=== PATIENT | male | born 1950 | race Caucasian/White ===

== ENCOUNTER 2024-10-12 19:43 | Inpatient (IN) | payer MEDICARE, SELFPAY ==
[2024-10-12] VITALS (37 sets, daily range): BP systolic 59–116; BP diastolic 34–83; PULSE 90; BMI 33.7
--- NOTE | 2024-10-12 16:05 | ED.GENMED ---
History of Present Illness
General
Chief Complaint: Heart Rate Problem
Source: patient, records and ambulance crew
Exam Limitations: dementia (Vascular dementia)
Time Seen by Provider: 10/12/24 15:56
Nursing documentation reviewed up to this point in time: agreed with
History of Present Illness
History of Present Illness:
74-year-old male with a past medical history of vascular dementia, COPD with chronic respiratory failure on 3 L of home oxygen, atrial fibrillation on Eliquis who presents to the emergency department from group home for evaluation of bradycardia.
Patient is somewhat limited as a historian but he is awake and alert and answers basic questions�he cannot tell me exactly why he is here. He says that he feels generally well denies any pain, shortness of breath or any other specific complaints.
According to EMS report group home staff today noted that he was severely bradycardic and he was referred to the ER. Per EMS he appeared to be in atrial fibrillation with heart rate in the 30s; he was given atropine x 1 mg with some improvement
in heart rate. Patient says that he follows with Dr. Maier for cardiology. He is on Eliquis and metoprolol according to medication list provided from group home.
Review of Systems
Review of Systems
All Other Systems: ROS reviewed and negative except as documented in HPI and ROS
Respiratory: Denies trouble breathing
Cardiac: Denies chest pain
ABD/GI: Denies abdominal pain
Neurological: Denies dizzy or headache
Phy Exam
Physical Exam
Physical Exam:
General: Awake, alert, oriented x2; no acute distress
Head: Normocephalic, atraumatic
Eyes: Conjunctiva normal
Throat: Airway intact, handling secretions
Neck: Trachea midline, supple without meningismus
Lungs: Clear to auscultation bilaterally, no wheezing, rales, rhonchi
Heart: Bradycardia with irregular rhythm; no rubs gallops or murmurs appreciated
Abd: Soft, non distended, nontender
Neuro: No gross deficits
Skin: Chronic venous stasis changes in the legs bilaterally with minor superficial wounds but no signs of acute infection
Extremities: Bilateral lower extremity edema; distal extremities are warm
Scores
Heart Failure Risk
Heart Failure Risk Score: Not Applicable
Heart Score for Chest Pain Patients
STEMI patient?: Not applicable
Withdrawal Assessment of Alcohol
Withdrawal Assessment Completed?: Not applicable
Course
Orders/Labs/Results
Orders:
Orders
10/12/24 16:00
EKG [Electrocardiogram (*1)] Urgent
Reason for Study: Bradycardia / Tachycardia
EKG- Treatment ONCE
10/12/24 16:17
CARDIOLOGY CONSULT Urgent
Consulting Provider: Lavelle Meyer
Was physician already notified: Yes
10/12/24 16:20
Complete Blood Count/With Diff Urgent
Comprehensive Metabolic Panel Urgent
Free T4 Urgent
Magnesium Urgent
PTT Urgent
Prothrombin Time Urgent
TSH Reflex To Free T4 Urgent
10/12/24 16:53
Electrocardiogram (*1) Urgent
Reason for Study: Bradycardia / Tachycardia
EKG- Treatment ONCE
10/12/24 17:07
EKG [Electrocardiogram (*1)] Stat
Reason for Study: Bradycardia / Tachycardia
10/12/24 17:09
DOPamine 400 MG/D5W 250 ML [DOPamine 400 MG] 400 mg in 250 ml .ROUTE .STK-MED
10/12/24 17:11
EKG [Electrocardiogram (*1)] Urgent
Reason for Study: Bradycardia / Tachycardia
10/12/24 17:12
EKG- Treatment ONCE
10/12/24 17:14
Atropine Sulfate [Atropine 0.1 mg/ml Syringe] 1 mg .ROUTE .STK-MED ONE
10/12/24 17:18
Atropine Sulfate [Atropine 0.1 mg/ml Syringe] 1 mg IV NOW STA
10/12/24 17:22
Lactate Level [Lactic Acid] Urgent
Troponin I Urgent
Urinalysis Reflex To Culture Urgent
EPINEPHrine 4 mg/250 mL NSS [Adrenalin] 4 mg in 250 ml IV NOW
Initial dose in mcg/min, then titrate:: 2
Titrate to keep:: MAP > 65 mmHg
Titrate by mcg/min:: 0.5 - 1 mcg/minute
Frequency of titrations (minutes):: 5
Maximum dose in mcg/min:: 10
Begin to taper infusion when:: Remained at goal for 4hrs
Taper by mcg/min:: 0.5 - 1 mcg/minute
Frequency of taper (minutes) if patient maintains goal:: 30
Taper to off?: Yes
If infusion off & no longer maintaining goal:: Contact Provider
10/12/24 17:23
CR Chest Portable - 1 View Urgent
Comment:
Reason For Exam: hypotension
Reason Study Needs to be Portable: Unable to Transport
10/12/24 17:30
Blood Culture Q30M
SATISH Source: Blood/Venous
Specimen Description:
10/12/24 17:32
0.9% Sodium Chloride 1000 ml [Nss] 1,000 ml IV BOLUS
DOPamine 400 MG/D5W 250 ML [DOPamine 400 MG] 400 mg in 250 ml IV NOW
Initial dose in mcg/kg/min, then titrate:: 5
Titrate to keep:: MAP > 65 mmHg
Titrate by mcg/kg/min:: 1-2 mcg/kg/min
Frequency of titrations (minutes):: 15
Maximum dose in ICU in mcg/kg/min:: 20
Maximum dose in IMU in mcg/kg/min:: 10
Begin to taper infusion when:: Remained at goal for 4hrs
Taper by mcg/kg/min:: 1-2 mcg/kg/min
Frequency of taper (minutes) if patient maintains goal:: 30
Taper to off?: Yes
If infusion off & no longer maintaining goal:: Contact Provider
10/12/24 17:33
0.9% Sodium Chloride 1000 ml [Nss] 1,000 ml IV BOLUS
Piperacillin/Tazo 3.375 Gram [Zosyn] 3.375 gram in 50 ml IV NOW
10/12/24 18:00
Blood Culture Q30M
SATISH Source: Blood/Venous
Specimen Description:
Abnormal Lab Results
10/12/24
16:20
WBC 11.0 H 10^3/uL
(4.8-10.8)
RBC 3.77 L 10^6/uL
(4.70-6.10)
Hgb 12.4 L g/dL
(13.0-18.0)
Hct 38.2 L %
(39.0-52.0)
MCV 101.3 H fL
(80.0-94.0)
MCH 32.9 H pg
(27.0-31.0)
MCHC 32.5 L g/dL
(33.0-37.0)
RDW 17.1 H %
(11.5-14.5)
Abs Immat Gran (auto) 0.1 H 10^3/uL
(0-0.05)
Absolute Neuts (auto) 8.3 H 10^3/uL
(1.4-6.5)
Absolute Monos (auto) 1.3 H 10^3/uL
(0.1-0.6)
Immature Gran % 0.7 H %
(0-0.5)
Neutrophils % 75.6 H %
(42.2-75.2)
Lymphocytes % 10.7 L %
(20.5-51.1)
Monocytes % 12.0 H %
(1.7-9.3)
PT 26.7 H Sec
(11.4-14.6)
APTT 43.5 H Sec
(23.4-35.0)
Chloride 95 L mmol/L
(98-107)
BUN 56 H mg/dl
(9-20)
Creatinine 2.7 H mg/dL
(0.7-1.3)
Glucose 100 H mg/dl
(70-99)
Total Bilirubin 1.5 H mg/dl
(0.2-1.3)
TSH (Reflex) 6.63 H uIU/ml
(0.47-4.68)
10/12/24 16:20
10/12/24 16:20
Vital Signs
Initial and Last Documented VS:
Initial Vital Signs
Temp Pulse Resp BP Pulse Ox
36.3 C 47 16 114/83 94
10/12/24 16:01 10/12/24 16:01 10/12/24 16:01 10/12/24 16:01 10/12/24 16:01
Last Documented Vital Signs
Temp Pulse Resp BP Pulse Ox
36.3 C 43 14 114/83 98
10/12/24 16:01 10/12/24 16:45 10/12/24 16:45 10/12/24 16:01 10/12/24 16:45
MDM/Problems Addressed
Differential Diagnosis Includes:
Bradycardia: Beta-dianne, bradycardia dysrhythmia, hypothyroidism, electrolyte derangement
MDM/Problems Addressed:
74-year-old male presents to the emergency room for evaluation of bradycardia noted at group home; patient says he is asymptomatic although he is somewhat unreliable as a historian due to his history of dementia. He sees Dr. Maier for cardiology
has a known history of A-fib and is on metoprolol and Eliquis. He apparently had a heart rate in the 30s for EMS received atropine x 1 mg. Heart rate high 40s to 50s here appears to have underlying atrial fibrillation on EKG but with regular
narrow complex likely junctional beats rate of 50. Will monitor on telemetry, place IV send labs including a CBC and a CMP, thyroid studies. Reassess after the above. Discussed with cardiology with concern for possible heart block.
Initial labs reviewed: CBC shows slight leukocytosis to 11, marginal anemia 12.4. CMP shows creatinine of 2.7 no baseline available for comparison. IV fluids in progress. His TSH is high free T4 is pending. Continue to monitor.
Patient becoming increasingly bradycardic heart rate was initially 50 now down into the 30s and he is becoming increasingly hypotensive blood pressure 70s over 40s. Repeat EKG again shows underlying A-fib with junctional escape rhythm versus slow
A-fib. Discussed with cardiology to review. Will give another dose of atropine as he seem to respond to this before. If no response will start on epinephrine infusion. He is already receiving IV fluids. I did add basic infectious workup given
his hypotension and slight leukocytosis--blood cultures, urinalysis, chest x-ray.
Discussed with cardiology�they will consult on patient, recommended dopamine for now instead of epinephrine, agreed with repeat dose of atropine. Continue with fluids. Workup for alternate cause for his hypotension. No plans for emergent
temporary wire for now but will reassess after treatment as above. I will cover patient with at least a dose of broad-spectrum antibiotics given his hypotension although at this point no clear focal infectious source noted and somewhat lower
suspicion that he is septic.
Chronic conditions affecting care:
Atrial fibrillation
*Pulse Oximetry
Patient hypoxic: no (Patient is on chronic oxygen but no increased oxygen requirement today)
*EKG
Interpreted by ED Provider?: Yes
Heart Rate: 50
Rate: bradycardiac
Rhythm: a-fib
Interval: normal interval
QRS Pattern: low voltage
Ischemia: no ischemia
*Critical Care Note
Total Time (30-74mins, 75-104mins- exclusive of procedures): Not Applicable
Data Reviewed
Source: patient, records and ambulance crew
Patient Management
Discussion with other providers: Hospitalist (Discussed with hospitalist) and Biomechanical Engineer (Discussed with cardiology)
Escalation/DeEscalation of care consider admission/obs:
Admission indicated
ED Attending Note
-
Portions of this chart may have been created with voice recognition software.� Occasional wrong word or��sound alike� substitutions may have occurred due to the inherent limitations of voice recognition software.
Discharge Plan
Departure
Discharge Problem:
Bradycardia
Prescriptions:
No Action
furosemide 40 mg Tablet
40 mg PO BID
acetaminophen 325 mg Tablet
650 mg PO Q6HPRN PRN (Reason: mild pain/temp>100.4)
ipratropium-albuterol 0.5 mg-3 mg(2.5 mg base)/3 mL Solution For Nebulization
3 ml INHALATION R Q4HPRN PRN (Reason: dyspnea/wheezing)
ondansetron HCl [Zofran] 4 mg Tablet
4 mg PO Q8HPRN PRN (Reason: nausea/vomiting)
loperamide [Imodium A-D] 2 mg Tablet
2 mg PO Q8HPRN PRN (Reason: diarrhea)
thiamine HCl (vitamin B1) 100 mg Tablet
100 mg PO DAILY
magnesium hydroxide [Milk of Magnesia] 400 mg/5 mL Suspension
30 ml PO [id number] PRN (Reason: no bm x3 days)
bisacodyl 10 mg Suppository
10 mg SD DAILYPRN PRN (Reason: if mom ineffective)
metoprolol tartrate 50 mg Tablet
50 mg PO DAILY
Fleet Enema 19-7 gram/118 mL Enema
118 ml SD DAILYPRN PRN (Reason: if suppository ineffective)
folic acid 1 mg Tablet
1 mg PO DAILY
pyridoxine (vitamin B6) 100 mg Tablet
100 mg PO DAILY
melatonin 5 mg Tablet
5 mg PO HSPRN PRN (Reason: insomnia)
cholecalciferol (vitamin D3) [Vitamin D3] 50 mcg (2,000 unit) Tablet
50 mcg PO DAILY
Eliquis 5 mg Tablet
5 mg PO BID
Interventions
Interventions:
*Risk Screen - Suicide Last Done: 10/12/24 16:01
*General Assessment Last Done: 10/12/24 16:01
*Neglect/Abuse Screening Last Done: 10/12/24 16:01
ED- Fall Risk Assessment Last Done: 10/12/24 16:34
*ED COVID-19 Vaccine History Last Done: 10/12/24 16:01
ED- Cardiac Assessment Last Done: 10/12/24 16:34
ED- Pulmonary Assessment Last Done: 10/12/24 16:34
Discharge Date and Time
Print Language: IRAQI
[2024-10-12 16:26] LABS: % Basophils 0.3 % (0-2); % Eosinophils 0.7 % (0-6); % Immature Granulocytes 0.7 % (0-0.5); % Lymphocytes 10.7 % (20.5-51.1); % Neutrophils 75.6 % (42.2-75.2); Absolute Eosinophils 0.1 10^3/uL (0-0.7); Absolute Immature Granulocytes 0.1 10^3/uL (0-0.05); Absolute Lymphocytes 1.2 10^3/uL (1.2-3.4); Absolute Monocytes 1.3 10^3/uL (0.1-0.6); Absolute Neutrophils 8.3 10^3/uL (1.4-6.5); Hematocrit 38.2 % (39.0-52.0); Hemoglobin 12.4 g/dL (13.0-18.0); Mean Corp Hgb Conc. 32.5 g/dL (33.0-37.0); Mean Corpuscular Hgb 32.9 pg (27.0-31.0); Mean Corpuscular Volume 101.3 fL (80.0-94.0); Mean Platelet Volume 10.3 fL (7.4-10.4); Nucleated Red Blood Cells % 0 % (-); Platelet Count 247 10^3/uL (130-400); Red Blood Cell Count 3.77 10^6/uL (4.70-6.10); Red Cell Dist. Width 17.1 % (11.5-14.5)
[2024-10-12 16:40] LABS: INR 2.46; PT 26.7 Sec (11.4-14.6)
[2024-10-12 16:41] LABS: APTT 43.5 Sec (23.4-35.0)
[2024-10-12 16:55] LABS: ALT (SGPT) 19 U/L (0-50); AST (SGOT) 36 U/L (17-59); Albumin 3.7 g/dl (3.5-5.0); Alkaline Phosphatase 91 U/L (38-126); Blood Urea Nitrogen 56 mg/dl (9-20); Calcium 8.7 mg/dl (8.4-10.2); Carbon Dioxide 27 mmol/L (22-30); Chloride 95 mmol/L (98-107); Estimated Creatinine Clearance 25 ml/min; Glucose 100 mg/dl (70-99); Sodium 136 mmol/L (135-145); Total Bilirubin 1.5 mg/dl (0.2-1.3); Total Protein 7.9 g/dl (6.3-8.2); eGFR 23.83
[2024-10-12 17:12] LABS: TSH Reflex To Free T4 6.63 uIU/ml (0.47-4.68)
[2024-10-12] MEDS: ATROPINE 0.1 MG/ML SYRINGE 1 MG IV (17:19)
[2024-10-12] MEDS: ADRENALIN 250 IV (17:32)
[2024-10-12] MEDS: DOPamine 400 MG 250 IV (17:38)
[2024-10-12 17:40] LABS: Free T4 1.73 ng/dl (0.78-2.19)
[2024-10-12] MEDS: NSS 1000 IV ×3 (17:44→22:56)
[2024-10-12] MEDS: ZOSYN 50 IV (18:02)
[2024-10-12 18:05] LABS: Lactic Acid 1.2 mmol/L (0.7-2.0)
[2024-10-12] MEDS: ZOFRAN 4 MG IV (18:05)
[2024-10-12 18:07] LABS: Urine Albumin 2+ (Neg - Trace); Urine Bilirubin 1+ (Negative); Urine Character Clear (Clear); Urine Color Yellow; Urine Glucose Negative (Negative); Urine Ketone Negative (Negative); Urine Leukocyte 2+ (Negative); Urine Nitrite Negative (Negative); Urine Occult Blood Negative (Negative); Urine Specific Gravity 1.015 (<1.030); Urine Urobilinogen 1+ (Neg - 1+)
[2024-10-12 18:14] LABS: Troponin I < 0.012 ng/ml
[2024-10-12 18:29] LABS: Urine Bacteria Few (Negative); Urine Red Blood Cell 0-2 /HPF (0-2); Urine Squamous Cell >30 /LPF (Few)
--- NOTE | 2024-10-12 18:38 | CON.CAR ---
Consultation
Consultation Request
Date/Time Consultation Requested: October 12, 2024
Date/Time Consultation Performed: October 12, 2024
Requesting Provider: ER
Performing Provider: Michael
Reason for Consultation: Bradycardia
Medical History
-
Chief Complaint: Bradycardia
History of Present Illness:
The patient is a poor historian at baseline but this relatively pleasant 74-year-old male who follows with Dr. Maier and cardiology up at [facility] presents with bradycardia. Heart rates in the high 30s to low 40s associated with
hypotension which was responsive in terms of heart rate to atropine initially to a heart rate in the 50s. Called by Dr. Kaylynn Alba and I requested that he be placed on dopamine to improve his heart rate. He is on chronic oral and coagulation with
permanent atrial fibrillation and metoprolol by report 50 mg daily. I have no access to his prior records and he is a poor historian. When seen his heart rate was now in the 80s with a continued blood pressure in the 70s over 40s. He has acute
renal failure as noted on his labs although I do not have a prior baseline. I asked the ER team to start hydration send cultures and antibiotics and placed on dopamine as an initial step. I do not believe his bradycardia requires permanent pacing
or even temporary pacing at this time. He does carry history of COPD on 3 L of oxygen and dementia.
Past Medical History
Past Medical History: Arrhythmias
Past Surgical History: Other (Unknown)
Social History
Tobacco: Smoker
Alcohol: Other (Unknown)
Drug: Other (Unknown)
Personal: Other (Unknown)
Living: Other (Unknown)
Employment: Not Employed
Family History
Family History: Reviewed & Not Pertinent
Allergies / Home Medications
Allergy/AdvReac Type Severity Reaction Status Date / Time
caffeine Allergy Unknown Verified 10/12/24 17:16
�Medication �Instructions �Recorded �Confirmed �Type
acetaminophen 325 mg tablet 650 mg PO Q6HPRN PRN mild 10/12/24 10/12/24 History
pain/temp>100.4
apixaban 5 mg tablet (Eliquis) 5 mg PO BID 10/12/24 10/12/24 History
bisacodyl 10 mg rectal suppository 10 mg OH DAILYPRN PRN if mom 10/12/24 10/12/24 History
ineffective
cholecalciferol (vitamin D3) 50 50 mcg PO DAILY 10/12/24 10/12/24 History
mcg (2,000 unit) tablet (Vitamin
D3)
folic acid 1 mg tablet 1 mg PO DAILY 10/12/24 10/12/24 History
furosemide 40 mg tablet 40 mg PO BID 10/12/24 10/12/24 History
ipratropium 0.5 mg-albuterol 3 mg 3 ml inhalation R Q4HPRN PRN 10/12/24 10/12/24 History
(2.5 mg base)/3 mL nebulization dyspnea/wheezing
soln
loperamide 2 mg tablet (Imodium 2 mg PO Q8HPRN PRN diarrhea 10/12/24 10/12/24 History
A-D)
magnesium hydroxide 400 mg/5 mL 30 ml PO [id number] PRN no bm x3 days 10/12/24 10/12/24 History
oral suspension (Milk of Magnesia)
melatonin 5 mg tablet 5 mg PO HSPRN PRN insomnia 10/12/24 10/12/24 History
metoprolol tartrate 50 mg tablet 50 mg PO DAILY 10/12/24 10/12/24 History
ondansetron HCl 4 mg tablet 4 mg PO Q8HPRN PRN nausea/vomiting 10/12/24 10/12/24 History
pyridoxine (vitamin B6) 100 mg 100 mg PO DAILY 10/12/24 10/12/24 History
tablet
sodium phosphates 19 gram-7 118 ml OH DAILYPRN PRN if 10/12/24 10/12/24 History
gram/118 mL enema (Fleet Enema) suppository ineffective
thiamine HCl (vitamin B1) 100 mg 100 mg PO DAILY 10/12/24 10/12/24 History
tablet
Review of Systems
-
Unable to obtain full review of systems at this time due to: Dementia and Other (Patient poor historian and borderline nonverbal)
History Source: Patient
Physical Exam
Vital Signs
Temp Pulse Resp BP Pulse Ox
97.4 F 80 14 96/50 93
10/12/24 16:01 10/12/24 18:30 10/12/24 18:30 10/12/24 18:20 10/12/24 18:30
Lab Results
10/12/24 16:20
10/12/24 16:20
Troponin I < 0.012 ng/ml 10/12/24 17:29
Physical Exam
General: Other (He appears in distress)
HEENT: Normocephalic
Respiratory: Rhonchi
Cardiac: Irregular Rhythm
Breast: Deferred by me
GI: Soft, Non Tender and Non Distended
Rectal: Deferred by Provider
Musculoskeletal: No Clubbing and No Cyanosis
Skin: Warm and Dry
Neuro: Awake
Hematologic/Lymphatic: No Lymphadenopathy
Psych: Confused
Impression / Plan
-
Impression:
Acute renal failure
Ventricular bradycardia
Hypotension�presumed sepsis or other
Leukocytosis
Permanent atrial fibrillation
COPD
Dementia
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
On chronic oral anticoagulation
Recommendations:
Given his response to dopamine with a heart rate in the 80s with ongoing hypotension I do not believe his bradycardia requires temporary pacing at this time.
I did request fluid support and dopamine and defer to emergency room team regarding consultations
Would be reasonable to consider ICU or IMU level of care
Will obtain old records
Await studies
Would broadly culture and would agree with antibiotics after culture
We can order an echocardiogram while he is hospitalized
Hold metoprolol
I have no objection to holding oral anticoagulation in the short-term if procedures are required
Consider Aquino placement if we get think this is postobstructive renal failure
Will follow with primary team and consultants while hospitalized
Data Reviewed
-
EKG: Tracing Personally Visualized and interpreted
Labs: Labs Reviewed by me
Old Records: Requested
--- NOTE | 2024-10-12 18:48 | HPS.HSE ---
Family Physician
-
Family Physician: Mark Delgado, DO
Chief Complaint
-
Bradycardia
History of Present Illness
74-year-old male with past medical history for emphysema, obstructive sleep apnea, vascular dementia, A-fib, hypertension, hypothyroidism, CHF presents with hypotension and bradycardia from halfway. Patient is poor historian. He is not able
to provide any meaningful story. Patient denied any short of breath, chest pain. Patient denied any fever, chills, cough, congestion. Patient denies any headache, dizzy. Patient denies any abdominal pain, nausea, vomiting or diarrhea.
Patient was noted bradycardia as well as hypotensive in ER. Patient received fluids. Patient was initiated on dopamine with improvement in his heart rate and blood pressure. Admitting for further management
Medical History
Past Medical History
Past Medical History: Reports Other
Additional Past Medical History:
Rheumatoid arthritis
Diverticulitis
Emphysema
Obstructive sleep apnea
Pneumonia
A-fib
Hypertension
Diastolic CHF
Vascular dementia
Past Surgical History: Reports Other
Additional Past Surgical History:
Bilateral rotator cuff surgery
Left hand neurosurgery right
Right ankle surgery
Right hip surgery times
Social History
Unable to obtain full social history at this time due to: Dementia
Family History
Family History: Not pertinent
Allergies / Home Medications
Allergies reflects when Allergies were last updated in [employer].
Home Medications with original date entered in [employer]
Allergy/Medication List:
Allergies
Allergy/AdvReac Type Severity Reaction Status Date / Time
caffeine Allergy Unknown Verified 10/12/24 17:16
Home Medications
acetaminophen 325 mg tablet 650 mg PO Q6HPRN PRN mild pain/temp>100.4 10/12/24
apixaban 5 mg tablet (Eliquis) 5 mg PO BID 10/12/24
bisacodyl 10 mg rectal suppository 10 mg SC DAILYPRN PRN if mom ineffective 10/12/24
cholecalciferol (vitamin D3) 50 mcg (2,000 unit) tablet (Vitamin D3) 50 mcg PO DAILY 10/12/24
folic acid 1 mg tablet 1 mg PO DAILY 10/12/24
furosemide 40 mg tablet 40 mg PO BID 10/12/24
ipratropium 0.5 mg-albuterol 3 mg (2.5 mg base)/3 mL nebulization soln 3 ml inhalation R Q4HPRN PRN dyspnea/wheezing 10/12/24
loperamide 2 mg tablet (Imodium A-D) 2 mg PO Q8HPRN PRN diarrhea 10/12/24
magnesium hydroxide 400 mg/5 mL oral suspension (Milk of Magnesia) 30 ml PO [id number] PRN no bm x3 days 10/12/24
melatonin 5 mg tablet 5 mg PO HSPRN PRN insomnia 10/12/24
metoprolol tartrate 50 mg tablet 50 mg PO DAILY 10/12/24
ondansetron HCl 4 mg tablet 4 mg PO Q8HPRN PRN nausea/vomiting 10/12/24
pyridoxine (vitamin B6) 100 mg tablet 100 mg PO DAILY 10/12/24
sodium phosphates 19 gram-7 gram/118 mL enema (Fleet Enema) 118 ml SC DAILYPRN PRN if suppository ineffective 10/12/24
thiamine HCl (vitamin B1) 100 mg tablet 100 mg PO DAILY 10/12/24
Review of Systems
-
Constitutional: Reports No Symptoms
EENT: Reports No Symptoms
Respiratory: Reports No Symptoms
Cardiac: Reports No Symptoms
Abdomen/GI: Reports No Symptoms
: Reports No Symptoms
Musculoskeletal: Reports No Symptoms
Skin: Reports No Symptoms
Neurological: Reports No Symptoms
Endocrine: Reports No Symptoms
Hematologic/Lymphatic: Reports No Symptoms
Psych: Reports No Symptoms
Physical Exam
Vital Signs
Vital Signs
Temp Pulse Resp BP Pulse Ox
97.4 F 81 17 96/49 94
10/12/24 16:01 10/12/24 18:40 10/12/24 18:40 10/12/24 18:40 10/12/24 18:40
Physical Exam
General: Well Developed, Well Nourished and No Apparent Distress
HEENT: NormoCephalic, Moist mucous membranes and Atraumatic
Respiratory: Clear
Cardiac: Bradycardia; No Murmur or Rub
GI: Soft, Non Tender, Non Distended and Normal Bowel Sounds; No Organomegaly
Rectal: Deferred by Provider
Musculoskeletal: No Clubbing and Other (Bilateral lower extremities PAD)
Skin: No Rash
Neuro: Nonfocal/grossly intact
Psych: Confused
Laboratory Results
-
10/12/24 16:20
10/12/24 16:20
Laboratory Results
PT 26.7 Sec (11.4-14.6) H 10/12/24 16:20
INR 2.46 10/12/24 16:20
APTT 43.5 Sec (23.4-35.0) H 10/12/24 16:20
Lactic Acid 1.2 mmol/L (0.7-2.0) 10/12/24 17:29
Total Bilirubin 1.5 mg/dl (0.2-1.3) H 10/12/24 16:20
AST 36 U/L (17-59) 10/12/24 16:20
ALT 19 U/L (0-50) 10/12/24 16:20
Alkaline Phosphatase 91 U/L (38-126) 10/12/24 16:20
Troponin I < 0.012 ng/ml 10/12/24 17:29
Data Reviewed
-
Lab Data: Labs Reviewed by me
Impression/Plan
-
# Bradycardia/hypotension
# History of A-fib
-Patient received a dose of atropine
-Continue dopamine
-fluids continued
-cardiology consulted
-EKG with A-fib
-As per cardiology, patient does not require temporary pacing
-Obtain echocardiogram
-Hold metoprolol
-Eliquis held
# Leukocytosis likely stress reaction
-WBC 11.0, patient is afebrile
-Continue to monitor
-Chest x-ray pending
-Blood and urine culture sent from ER
-IV Zosyn empirically continued
# Acute kidney injury likely hypovolemic
-Creatinine 2.7
-Fluids continued
-BMP in a.m.
-Bladder scan
# History of congestive heart failure
- hold Lasix
-Strict NILDA, daily weight
-Cardiology following patient
# History of emphysema
#hxt of questionable chronic respiratory failure on oxygen at home
-Nebs from home continued
-Continue supplemental oxygen
-Wean as tolerated
# DVT prophylaxis
- held eliquis
# CODE STATUS
-Patient is DNR
--- NOTE | 2024-10-12 19:40 | W.PN.UPDATE ---
Update Note
Progress Note Update
I could not get any information from the patient with Vascular dementia
Information gathered by chart review and speaking with the ER staff.
This note serves as an addendum to the H&P by medical director of hospice STEVE
Pepper KIM
HPI
74M NH Res with vascular dementia HX emphysema, KRYSTYNA, A Fib , HTN, hypothyroidism, CHF pw hypotension and bradycardia from custodial.
At ER:
- noted bradycardia as well as hypotensive in ER.
- received IVF
- initiated on dopamine with improvement in his heart rate and blood pressure. Admitting for
ROS
Patient denied any short of breath, chest pain.
Patient denied any fever, chills, cough, congestion.
Patient denies any headache, dizzy.
Patient denies any abdominal pain, nausea, vomiting or diarrhea.
Vital Signs
Temp Pulse Resp BP Pulse Ox
97.4 F 81 17 96/49 94
10/12/24 16:01 10/12/24 18:40 10/12/24 18:40 10/12/24 18:40 10/12/24 18:40
PE
General: NAD, not toxic
HEENT: anicteric
Lungs: Clear
CVS: Bradycardia; No Murmur or Rub
GI: Soft, Non Tender, Non Distended and Normal Bowel Sounds
Rectal: Deferred by Provider
MS: Bilateral lower extremities
Skin: No Rash
Neuro: Nonfocal/grossly intact
Psych: Confused
10/12/24 10/12/24
16:20 17:29
WBC 11.0 H
Hgb 12.4 L
Plt Count 247
INR 2.46
Potassium 5.0
Chloride 95 L
Carbon Dioxide 27
BUN 56 H
Creatinine 2.7 H
eGFR 23.83
Troponin I < 0.012
TSH (Reflex) 6.63 H
Free T4 1.73
EKG; A-fib
Last hospitalist admission:
ASSESSMENT & PLAN
Bradycardia with hypotension
HX A-fib on Metoprolol
-Patient received a dose of atropine
- c/w dopamine gtt and HR is in 80s
- Hold Metoprolol
- Hold Eliquis in case procedure in AM
- IVF
- ECHO in AM
- DCA card consulted: does not recommend temporary pacing
Leukocytosis likely stress reaction
-WBC 11.0, afebrile
- Pending CXR
- BCx and UCx sent
- Empiric IV Zosyn
JOYCE likely due to hypotension
No prior admission to
- IVF
- BMP
- Bladder scan
HX CHF
- check proBNP
- Hold Lasix due to hypotension
- daily weight
HX emphysema
-Chronic respiratory failure on home O2
-Nebs from home continued
DVT Px: SCD whil holding Eliquis
DNR
CV ICU
[2024-10-12 21:26] LABS: NT-proBNP 1990 pg/ml
--- NOTE | 2024-10-12 22:00 | PTCARENOTE ---
Received pt from ED who was admitted from the ED. Pt come from [facility]. pt presented to the ED with bradycardia and Hypotension. pt has a history of vascular dementia. pt is poor historian and unable to answer many of the admission
question. pt is awake, alert, and orientated to self and place. pt follows simple commands and moves all extremities appropriately. pt's daughter is the only listed contact but pt stated he did not want her called. Pt wanted to make someone called
Luis his emergency contact but did not know his number. Pt has a hx of persistent Afib but is currently NSR on monitor. heart sounds audible, radial pulses weak on palpation, b/l DP present with doppler. lung sounds diminished at b/l bases, spo2 80%
on 6 LNC, provided notified and cpap ordered. +BS x4 quadrants, abdomen soft, round/obese, non tender. pt currently unable to void but feel the urge, pt bladder scanned for 60mls of urine. b/l legs are dry, scaly, likely PAD/PVD (hx unknown), open
wound on left lower leg, no drainage noted. x2 PIV maintained. pt arrived from the ED with dopamine and IV fluids infusing, these gtt are still currently infusing. pt was cleaned with CHG wipes, new leads and gown placed. bed alarm turned on. DNR
and fall risk bracelet on pt. call carrera within reach. will continue to monitor.
--- NOTE | 2024-10-12 22:00 | PTCARENOTE ---
Attempted to reach out to [facility] for confirmation on patient's medications. Spoke to one nurse who was able to confirm patient's provided med list as being current but unable to provide last know medication time. Stated it 'looked like patient
was vomiting in the morning' and did not get his medication as scheduled. No answer at other unit when call was transferred.
--- NOTE | 2024-10-12 23:30 | PTCARENOTE ---
pt place on bipap and spo2 greatly improved. Spo2 currently at 96% on 12L bipap.
[2024-10-13] VITALS (77 sets, daily range): BP systolic 61–132; BP diastolic 29–95; PULSE 69–90; O2SAT 91; BMI 33.3
[2024-10-13] MEDS: ZOSYN 50 IV ×5 (00:37→23:57)
--- NOTE | 2024-10-13 01:00 | PTCARENOTE ---
pt resting comfortably in bed. pt now in Afib. VSS. provider notified.
--- NOTE | 2024-10-13 03:00 | PTCARENOTE ---
pt assessment unchanged. pt sleeping comfortably in bed. pt yet to void. will continue to monitor.
--- NOTE | 2024-10-13 04:00 | PTCARENOTE ---
Pt remains in Afib. VSS. am labs drawn and sent. pt still unable to void. bladder scaned for 265mls of urine. will continue to monitor.
[2024-10-13 04:26] LABS: Hemoglobin 11.3 g/dL (13.0-18.0); Mean Corp Hgb Conc. 32.3 g/dL (33.0-37.0); Mean Corpuscular Hgb 32.4 pg (27.0-31.0); Mean Corpuscular Volume 100.3 fL (80.0-94.0); Mean Platelet Volume 10.1 fL (7.4-10.4); Platelet Count 206 10^3/uL (130-400); Red Blood Cell Count 3.49 10^6/uL (4.70-6.10); Red Cell Dist. Width 16.9 % (11.5-14.5); White Blood Cell Count 10.5 10^3/uL (4.8-10.8)
[2024-10-13 05:03] LABS: Blood Urea Nitrogen 51 mg/dl (9-20); Calcium 6.8 mg/dl (8.4-10.2); Carbon Dioxide 24 mmol/L (22-30); Chloride 97 mmol/L (98-107); Estimated Creatinine Clearance 40 ml/min; Glucose 314 mg/dl (70-99); Potassium 3.6 mmol/L (3.5-5.1); Sodium 132 mmol/L (135-145); eGFR 41.52
[2024-10-13] MEDS: CALCIUM GLUCONATE 100 IV (05:30)
--- NOTE | 2024-10-13 06:00 | PTCARENOTE ---
pt's right arm appears to have an IV infiltrate. Provider notified and IV team contacted. infusions on that arm stopped.
--- NOTE | 2024-10-13 06:50 | W.PN.CARDCBS ---
Today's Communication / Plan
-
I have no objection to apixaban 2.5 mg twice daily
Discontinue metoprolol
Wean dopamine
His hypotension is likely responsible from hypovolemia and/or infection and I do not believe the bradycardia was the major contributor. In the ER with improvement in heart rate he still was markedly hypotensive providing a physiologic principal
that his bradycardia is not a significant contributor to his hypotension
Hydrate
Check echo while hospitalized
We will follow with you
Impression / Plan
-
Impression:
Acute renal failure
Ventricular bradycardia
Hypotension�presumed sepsis or other
Leukocytosis
Permanent atrial fibrillation
COPD
Dementia
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
On chronic oral anticoagulation
Hypocalcemia
Recommendations:
Given his response to dopamine with a heart rate in the 80s with ongoing hypotension I do not believe his bradycardia is the primary contributor of his hypotension. With heart rate recovery to the 80s he was still hypotensive in the ER
I did request fluid support and dopamine and defer to emergency room team regarding consultations. Reasonable continue dopamine 1 more day with weaning and his creatinine is improved with hydration
Could consider intermediate unit or telemetry
Will obtain old records
Await studies
Would broadly culture and would agree with antibiotics after culture
Check echo
Hold metoprolol. Would be reasonable to hold off on restart
I have no objection to holding oral anticoagulation in the short-term if procedures are required but as there appears to be no current indication for pacing I have no objection to resuming apixaban 2.5 mg p.o. twice daily while his renal function is
elevated and can increase as renal function improves
Will follow with primary team and consultants while hospitalized
Progress Note - Rcis
Subjective
Date of Service: October 13, 2024
Improving
More communicative
Objective
Labs:
10/13/24 04:16
10/13/24 04:16
Labs
Hgb 11.3 g/dL (13.0-18.0) L 10/13/24 04:16
Hct 35.0 % (39.0-52.0) L 10/13/24 04:16
Plt Count 206 10^3/uL (130-400) 10/13/24 04:16
PT 26.7 Sec (11.4-14.6) H 10/12/24 16:20
INR 2.46 10/12/24 16:20
APTT 43.5 Sec (23.4-35.0) H 10/12/24 16:20
Sodium 132 mmol/L (135-145) L 10/13/24 04:16
Potassium 3.6 mmol/L (3.5-5.1) D 10/13/24 04:16
BUN 51 mg/dl (9-20) H 10/13/24 04:16
Creatinine 1.7 mg/dL (0.7-1.3) H 10/13/24 04:16
Glucose 314 mg/dl (70-99) H 10/13/24 04:16
Troponins
10/12/24
17:29
Troponin I < 0.012
Vital Signs and I&O:
Vital Signs
Temp Pulse Resp BP Pulse Ox
98.5 F 74 16 107/62 95
10/13/24 02:00 10/12/24 23:15 10/13/24 02:00 10/12/24 23:00 10/13/24 02:00
Vital Signs
Temp Pulse Resp BP Pulse Ox
98.5 F 74 16 107/62 95
10/13/24 02:00 10/12/24 23:15 10/13/24 02:00 10/12/24 23:00 10/13/24 02:00
Physical Exam
Physical Exam
����Physical Exam
���������������������General:��no apparent distress, not acutely ill
���������������������������Neck:��supple. no meningeal signs. normal psoterior pharynx
������������������������
���������������������������Heart:��s1/s2 cor irregularly irregular rate and rhythm, no murmur. equal radial pulses.
��������������������������Lungs: ��no acute respiratory distress. clear bilaterally
����������������������Abdomen:�normal bowel sounds. not tender. no CVAT
��������������������������Neuro:��alert and oriented. no focal neurological deficits
������������������������������Skin: ��no rash
�����������������������Psychiatric:�well kept. interactive and cooperative
�����������������������Extremities:��no edema. no calf tenderness. negative homans. good distal pulses
��
�
[2024-10-13] MEDS: DOPamine 400 MG 250 IV ×3 (07:42→22:45)
[2024-10-13] MEDS: NSS 1000 IV ×3 (09:41→23:57)
--- NOTE | 2024-10-13 10:09 | PTCARENOTE ---
Patient care assumed from nightshift RN. Patient alert to person and time, has some forgetfulness in general, which has been noted to be his baseline due to hx of vascular dementia. Pt stated that he was at [facility] at time of assessment.
Follows commands, denies pain. Afebrile. Pt on 6LNC at change of shift, weaned down to 3LNC with O2 sats at 92%, denies any shortness of breath. Pt normally on 2LNC at baseline at his home facility. Lung sounds clear, slightly diminished in bases.
Occasional moist cough present. Pt HR 60-70s, monitoring closely for bradycardia as he presented to us with. Pt on Dopamine gtt at 10mcg/kg/min via PIV. Pt was titrated down to 8mcg/kg/min prior to change of shift but BP did not tolerate, increased
back up to 10. Plan for echo to be completed on tuesday. Pt was retaining urine during prior shift, but now is voiding without complication in urinal, see I&O for numerics. Bowel sounds present, pt ordered breakfast. No BM yet. Lower bilateral
extremities exhibit signs of significant PVD/PAD, doppler pulses required.
[2024-10-13 10:42] LABS: Glycohemoglobin (HgbA1c) 5.3 % (4.0-5.6)
--- NOTE | 2024-10-13 11:19 | W.PN.HOSP.TC ---
Today's Communication/Plan
-
see outlined plan
Assessment / Plan
Assessment / Plan
Assessment:
Hypotension/Bradycardia
- s/p Atropine
- stop Metoprolol
- remains on Dopamine; wean as able
- continue IVF
- Empiric Zosyn pending cultures in case of infection
- follow EP/Cards recs; no role for temporary pacing
- Tuesday Echo
Hx of permanent A. Fib
- off BB
- continue Eliquis as 2.5mg BID
Leukocytosis likely stress reaction
- Empiric Zosyn pending cultures
JOYCE, pre-renal from hypotension
- continue IVF
- follow bladder scans and labs
Hx of Chronic CHF - unknown type
- Await Echo
- holding Lasix
- monitor volume status with IVF
Hx of COPD/Emphysema
Chronic hypoxic respiratory failure on 2L NC
- monitor O2
- prn nebs
Hyponatremia, acute
Hypocalcemia - repleted via IV. Follow BMP.
DVT ppx: Eliquis
Code: DNR/DNI
Total Critical Care Time 42 minutes. I was immediately available to the patient and staff. I personally examined, reviewed labs, diagnostic images/reports, interpretations, treatment plans, discussed patient care with other providers and family
or caregivers (if patient is unable to make decisions), entered orders as appropriate and documented the medical record.
Anticipated Discharge: > 48 hours
Subjective/Interval History
-
Date of Service: October 13, 2024
resting comfortably
remains on dopamine infusion
Objective Data
-
Labs:
Laboratory Results
10/13/24
04:16
WBC 10.5
Hgb 11.3 L
Hct 35.0 L
Plt Count 206
Sodium 132 L
Potassium 3.6 D
Chloride 97 L
Carbon Dioxide 24
BUN 51 H
Creatinine 1.7 H
Glucose 314 H
Calcium 6.8 L* D
Vital Signs:
Vital Signs
Temp Pulse Resp BP Pulse Ox
97.6 F 71 14 90/54 95
10/13/24 07:21 10/13/24 11:00 10/13/24 11:00 10/13/24 11:00 10/13/24 11:00
I&O
10/12/24 10/13/24 10/14/24
06:59 06:59 06:59
Intake Total 382.0 / 382.0
Output Total 475 / 475
Balance -93.0 / -93.0
Physical Exam
-
General: No Apparent Distress
HEENT: Normocephalic and Atraumatic
Respiratory: Negative Wheezes
Cardiac: Regular Rhythm and S1/S2
GI: Soft and Nontender
Genito-urinary: No Costovertebral Tender
Psych: Apparent Dementia
Data Reviewed
-
Critical Care Time (in minutes): 42
Labs: Labs Reviewed by me
--- NOTE | 2024-10-13 12:00 | PTCARENOTE ---
Patient remains on dopamine gtt @ 10 mcg/kg/min, MAP being maintained >65. Patient on 3LNC, O2 sat 93-94%. Pt denies pain. Repositioning frequently encouraged and assisted to prevent skin breakdown. Pt resting a lot during day today. Continues to
void in urinal with no complications, I&O being measured. Eliquis given. NSS gtt increased to 80 ml/hr. Pt remains in Afib with rate in 70s.
[2024-10-13] MEDS: ELIQUIS 2.5 MG PO ×2 (12:50→20:43)
--- NOTE | 2024-10-13 17:28 | PTCARENOTE ---
Patient continued on dopamine gtt @ 10 mcg/kg/min. NSS gtt continued @ 80 ml/hr. Poor appetite. 3LNC. Denies pain or discomfort.
--- NOTE | 2024-10-13 20:00 | PTCARENOTE ---
Assumed care of the patient at 1900. Patient found in bed, AOx2 (d/place), no present c/o pain, forgetful but appropriate. In afib on monitor, rates 70's, apical pulse irregular, no edema noted; pedal and PT pulses weakly palpable. Lungs dim at the
bases, on 3LNC satting 97%, no shortness of breath appreciated. Abdomen SNT, obese, hyperactive BS, appetite good, tolerating PO medications. Patient able to use urinal, unclear if urine on pad is from incontinence or needing assistance with the
urinal - mL output noted when available. Scattered ecchymosis on upper extremities; lower legs PVD discoloration, brown/dark with scaly, flaky of skin on lower legs; feet and toes have a dry macerated appearance. PIV x2, on dopamine and maintenance
fluids. Patient updated on POC, amenable to interventions, assessment of needs ongoing, patient call carrera within reach.
[2024-10-14] VITALS (61 sets, daily range): BP systolic 68–138; BP diastolic 44–93; PULSE 84–85; BMI 33.9
--- NOTE | 2024-10-14 00:18 | PTCARENOTE ---
Patient hypotensive, asymptomatic, assessment otherwise stable, patient resting comfortably in bed. CVPA aware of hypotension, Dopamine maintained at 10, see MAR.
[2024-10-14] MEDS: CALCIUM GLUCONATE 100 IV (00:30)
--- NOTE | 2024-10-14 04:30 | PTCARENOTE ---
BP much improved following calcium infusion. Per CVPA, maintain dopa gtt at 10 at this time. Patient assessment otherwise unchanged, sleeping between care, labs drawn and sent
[2024-10-14 05:47] LABS: Hematocrit 42.6 % (39.0-52.0); Hemoglobin 13.9 g/dL (13.0-18.0); Mean Corp Hgb Conc. 32.6 g/dL (33.0-37.0); Mean Corpuscular Hgb 32.8 pg (27.0-31.0); Mean Corpuscular Volume 100.5 fL (80.0-94.0); Mean Platelet Volume 10.5 fL (7.4-10.4); Platelet Count 226 10^3/uL (130-400); Red Blood Cell Count 4.24 10^6/uL (4.70-6.10); Red Cell Dist. Width 16.2 % (11.5-14.5); White Blood Cell Count 11.7 10^3/uL (4.8-10.8)
[2024-10-14 05:54] LABS: Blood Urea Nitrogen 50 mg/dl (9-20); Calcium 9.4 mg/dl (8.4-10.2); Carbon Dioxide 28 mmol/L (22-30); Chloride 97 mmol/L (98-107); Estimated Creatinine Clearance 36 ml/min; Glucose 111 mg/dl (70-99); Potassium 4.4 mmol/L (3.5-5.1); Sodium 136 mmol/L (135-145); eGFR 36.33
[2024-10-14] MEDS: ZOSYN 50 IV ×3 (06:07→17:06)
[2024-10-14] MEDS: ELIQUIS 2.5 MG PO (07:22)
[2024-10-14] MEDS: DOPamine 400 MG 250 IV ×2 (07:35→16:54)
--- NOTE | 2024-10-14 08:39 | PTCARENOTE ---
Assumed care of patient at 0700. Pt is drowsy but awakens appropriately. Pt able to state name and , knows he is in the hospital but incorrectly states which hospital, able to state year correctly but not the month or day. Pt overall pleasant and
cooperative. Pt remains Afib with HR 65. BP 98/50 MAP 66. Pulse oximetry 97% on 3L nasal cannula. Pt tolerating PO medication. Voiding in urinal without issue. Bilateral lower extremities brown and flaky. Pedal pulses present with Doppler. Pt
remains on NSS at 80ml/hr. Dopamine gtt, currently at 8mcg/kg/min. Notified Hospitalist, Dr. Correia, pt on Dopamine x24hrs will require central line. Pt with no complaints of pain. Currently in bed with call carrera within reach.
--- NOTE | 2024-10-14 09:23 | W.PN.CARDCBS ---
Today's Communication / Plan
-
Attempted wean dopamine
No indication for pacing
Discontinue metoprolol
Follow renal function
Echo tomorrow
I have no objection to gentle hydration
Appreciate IM management
Impression / Plan
-
Impression:
Acute renal failure
Ventricular bradycardia
Hypotension�presumed sepsis or other
Leukocytosis
Permanent atrial fibrillation
COPD
Dementia
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
On chronic oral anticoagulation
Hypocalcemia
Recommendations:
No indication for temporary or permanent pacing
He does remain hypotensive despite improved heart rate and will try weaning dopamine today
-I wonder if he is still somewhat volume deplete
-Will obtain old records
-Check echo
-Hold metoprolol. Would be reasonable to discontinue altogether
I increased his apixaban to 5 mg twice daily given his improving renal function
Will follow with primary team and consultants while hospitalized
Progress Note - Activity Therapist
Subjective
Date of Service: October 14, 2024
Feels better
Objective
Labs:
10/14/24 04:40
10/14/24 04:40
Labs
Hgb 13.9 g/dL (13.0-18.0) D 10/14/24 04:40
Hct 42.6 % (39.0-52.0) 10/14/24 04:40
Plt Count 226 10^3/uL (130-400) 10/14/24 04:40
PT 26.7 Sec (11.4-14.6) H 10/12/24 16:20
INR 2.46 10/12/24 16:20
APTT 43.5 Sec (23.4-35.0) H 10/12/24 16:20
Sodium 136 mmol/L (135-145) 10/14/24 04:40
Potassium 4.4 mmol/L (3.5-5.1) 10/14/24 04:40
BUN 50 mg/dl (9-20) H 10/14/24 04:40
Creatinine 1.9 mg/dL (0.7-1.3) H 10/14/24 04:40
Glucose 111 mg/dl (70-99) H 10/14/24 04:40
Troponins
10/12/24
17:29
Troponin I < 0.012
Vital Signs and I&O:
Vital Signs
Temp Pulse Resp BP Pulse Ox
97.9 F 84 24 98/50 97
10/14/24 08:00 10/14/24 08:30 10/14/24 08:30 10/14/24 08:00 10/14/24 08:26
Vital Signs
Temp Pulse Resp BP Pulse Ox
97.9 F 84 24 98/50 97
10/14/24 08:00 10/14/24 08:30 10/14/24 08:30 10/14/24 08:00 10/14/24 08:26
Intake & Output
10/12/24 10/13/24 10/14/24 10/15/24
06:59 06:59 06:59 06:59
Intake Total 3742.0 / 3857.5 227.5 / 227.5
Output Total 1790 / 2490 700 / 700
Balance 1952.0 / 1367.5 -472.5 / -472.5
Physical Exam
Physical Exam
����Physical Exam
���������������������General:��no apparent distress, not acutely ill
���������������������������Neck:��supple. no meningeal signs. normal psoterior pharynx
������������������������
���������������������������Heart:�Irregularly irregular, no murmur. equal radial pulses.
��������������������������Lungs: ��no acute respiratory distress. clear bilaterally
����������������������Abdomen:�normal bowel sounds. not tender. no CVAT
��������������������������Neuro:��alert and oriented. no focal neurological deficits
������������������������������Skin: ��no rash
�����������������������Psychiatric:�well kept. interactive and cooperative
�����������������������Extremities:��no edema. no calf tenderness. negative homans. good distal pulses
��
�
[2024-10-14] MEDS: ProAmatine 5 MG PO ×3 (09:37→17:06)
--- NOTE | 2024-10-14 11:05 | PTCARENOTE ---
Continuing to titrate down Dopamine as BP tolerates, currently Dopamine at 7mcg/kg/min. BP 96/59 MAP 72. Midodrine started per order. Remains on NSS at 80ml/hr. Pulse oximetry 95% on 2L nasal cannula.
--- NOTE | 2024-10-14 13:24 | W.PN.HOSP.TC ---
Today's Communication/Plan
-
Wean Dopamine drip
Midodrine
DC Abx if bcx negative at 48 hours
Assessment / Plan
Assessment / Plan
Assessment:
Hypotension/Bradycardia
- s/p Atropine
- stop Metoprolol
- remains on Dopamine; wean as able
- started Midodrine to help wean pressor
- continue IVF
- Empiric Zosyn pending cultures in case of infection, if cultures negative tonight 48 hours, can dc them
- follow EP/Cards recs; no role for temporary pacing
- Echo on Tuesday
Hx of permanent A. Fib
- off BB
- continue Eliquis 5mg BID
Leukocytosis likely stress reaction
- Empiric Zosyn pending cultures in case of infection, if cultures negative tonight 48 hours, can dc them
JOYCE, pre-renal from hypotension
- continue IVF
- follow bladder scans and labs
Hx of Chronic CHF - unknown type
- Await Echo
- holding Lasix
- monitor volume status with IVF
Hx of COPD/Emphysema
Chronic hypoxic respiratory failure on 2L NC
- monitor O2
- prn nebs
Hyponatremia, acute
Hypocalcemia - repleted via IV
DVT ppx: Eliquis
Code: DNR/DNI
Total Critical Care Time 42 minutes. I was immediately available to the patient and staff. I personally examined, reviewed labs, diagnostic images/reports, interpretations, treatment plans, discussed patient care with other providers and family
or caregivers (if patient is unable to make decisions), entered orders as appropriate and documented the medical record.
Anticipated Discharge: 24 - 48 hours
Subjective/Interval History
-
Date of Service: October 14, 2024
resting comfortably
no complaints
on Dopamine 7
Objective Data
-
Labs:
Laboratory Results
10/14/24
04:40
WBC 11.7 H
Hgb 13.9 D
Hct 42.6
Plt Count 226
Sodium 136
Potassium 4.4
Chloride 97 L
Carbon Dioxide 28
BUN 50 H
Creatinine 1.9 H
Glucose 111 H
Calcium 9.4 D
Vital Signs:
Vital Signs
Temp Pulse Resp BP Pulse Ox
98.2 F 66 20 93/56 91
10/14/24 12:00 10/14/24 13:06 10/14/24 13:06 10/14/24 13:06 10/14/24 13:00
I&O
10/13/24 10/14/24 10/15/24
06:59 06:59 06:59
Intake Total 3742.0 / 3857.5 748.4 / 748.4
Output Total 1790 / 2490 1200 / 1200
Balance 1952.0 / 1367.5 -451.6 / -451.6
Physical Exam
-
General: No Apparent Distress
HEENT: Normocephalic and Atraumatic
Respiratory: Negative Wheezes
Cardiac: Regular Rhythm and S1/S2
GI: Soft
Genito-urinary: No Costovertebral Tender
Musculoskeletal: No Edema
Neuro: AO x 3
Hematologic / Lymphatic: No Lymphadenopathy
Psych: Calm
Data Reviewed
-
Critical Care Time (in minutes): 42
Labs: Labs Reviewed by me
--- NOTE | 2024-10-14 15:18 | PTCARENOTE ---
RUE PICC in place. X-ray obtained for placement. Remains on Dopamine at 7mcg/kg/min. BP 90/53 MAP 65. NSS now off per order. Pt tolerating PO diet, with improved appetite.
--- NOTE | 2024-10-14 20:00 | PTCARENOTE ---
Report received from CECILIA Chen. Pt assessed VS done. Oriented to name, knows he is in a hospital. Unsure of purpose and time. Speech clear, Moves all extremities equally x 4. Pleasant, cooperative. No c/o pain. Pt on 1L/O2. Sats 95%. BBS present.
Decreased to B bases. Pt in AF, rate controlled. Dopamine at 8 mcg/kg/min to keep SBP > 90 mmHG. Audible heart tones. BLE with PVD, brown in color, thick scales to B feets, shins. B DP and PT pulses found via doppler. +2 palpable radial pulses.
Belly soft, nontender. Normoactive bs x 4. C/O transient nausea before eating dinner. Resolved while eating dinner. Poor appetite. Voids in urinal. Clear, yellow urine. Ongoing plan of care.
[2024-10-14] MEDS: ELIQUIS 5 MG PO (20:06)
[2024-10-15] VITALS (49 sets, daily range): BP systolic 77–153; BP diastolic 46–103; BMI 33.9
--- NOTE | 2024-10-15 | PTCARENOTE ---
Pt given CHG bath. Linens and gown changed. Noted blanchable redness to sacral region and top of gluteal fold. Sacral optifoam applied. Encouraged turning q 2 hours. Dopamine gt remains at 8 mcg/min. SBP 90's. - 100's. Pt in AF, rate controlled
60-70's. Pt attempting to go to sleep.CPAP on at 10L/O2.
[2024-10-15] MEDS: ZOSYN 50 IV ×2 (00:03→06:19)
[2024-10-15] MEDS: DOPamine 400 MG 250 IV ×3 (00:03→19:46)
--- NOTE | 2024-10-15 05:00 | PTCARENOTE ---
lab work sent. Pt going back to sleep.
[2024-10-15 06:01] LABS: Hemoglobin 12.6 g/dL (13.0-18.0); Mean Corp Hgb Conc. 32.3 g/dL (33.0-37.0); Mean Corpuscular Hgb 32.4 pg (27.0-31.0); Mean Corpuscular Volume 100.3 fL (80.0-94.0); Mean Platelet Volume 10.2 fL (7.4-10.4); Platelet Count 198 10^3/uL (130-400); Red Blood Cell Count 3.89 10^6/uL (4.70-6.10); Red Cell Dist. Width 15.9 % (11.5-14.5); White Blood Cell Count 7.5 10^3/uL (4.8-10.8)
[2024-10-15 06:08] LABS: Blood Urea Nitrogen 32 mg/dl (9-20); Carbon Dioxide 31 mmol/L (22-30); Chloride 97 mmol/L (98-107); Estimated Creatinine Clearance 57 ml/min; Glucose 111 mg/dl (70-99); Sodium 135 mmol/L (135-145); eGFR > 60.00
--- NOTE | 2024-10-15 06:32 | PTCARENOTE ---
0600 med given. Pt weighed in bed. States he is comfortable. Wearing 1L/NC. Sats 91-94% Does not want CPAP on at this time.
--- NOTE | 2024-10-15 08:59 | WOUNDNOTE ---
[facility] RN note: Patient admitted with HOTN, bradycardia. Patient lives alone. He has a walker and wheelchair at home.
See H&P for complete history.
PMH: emphysema,sleep apnea, a fib (Eliquis), HTN, CHF, RA, diverticulitis, bilateral rotator cuff surgery, R ankle surgery, venous stasis.
Wound Location and type/assessment: Patient admitted with: L great plantar medial dry scabbed abrasion. Mild sacral/coccyx crease MASD, abdominal/groin MASD. L south scar. +Hemosiderosis with dry skin le's. +Pedal pulses heard easily via portable
Doppler.
Appetite: good.
Pressure redistribution devices in place: Centrella Max air bed. Patient can turn self in bed.
Plan: Miconazole powder to be ordered. Patient interested in knee high Tubigrip. Heels off bed with pillow. Suggested patient make an appointment with a dealer support technician for toenail care.
Will confirm orders with Dr. Correia and discussed with CECILIA Gabriel.
Care plan to be updated and will follow as needed.
--- NOTE | 2024-10-15 09:00 | PTCARENOTE ---
assumed care of pt from previous shift RN, rachid on tele w HR 70's, + doppler peripheral pulses, +1 chronic edema to bilateral lower extremities. Lungs diminished, pox 94% on 2L NC. +bs, tolerating PO intake, voids spontaneously. Pt seems oriented,
forgetful at times. Safety precautions maintained.
DRIPS: Dopamine 8mcg/kg/min
--- NOTE | 2024-10-15 09:00 | WOUNDNOTE ---
[facility] RN note: Patient admitted with HOTN, bradycardia. Patient lives alone. He has a walker and wheelchair at home.
See H&P for complete history.
PMH: emphysema,sleep apnea, a fib (Eliquis), HTN, CHF, RA, diverticulitis, bilateral rotator cuff surgery, R ankle surgery, venous stasis.
Wound Location and type/assessment: Patient admitted with: L great plantar medial dry abrasion/scar, not open. Mild sacral/coccyx crease MASD, abdominal/groin MASD. L south discolored scar. +Hemosiderosis with dry skin le's. +Pedal pulses heard
easily via portable Doppler. L heel blanchable red. Upper ear creases mild red suspect from home o2 use. Soft type NC o2 tubing being used. R anterior ankle small red ecchymotic area, patient stated is not new.
Appetite: good.
Pressure redistribution devices in place: Centrella Max air bed. Patient can turn self in bed.
Plan: Miconazole powder to be ordered. Patient interested in knee high Tubigrip. Heels off bed with pillow. Suggested patient make an appointment with a anvilsmith for toenail care. Air chair cushion given.
Will confirm orders with Dr. Correia and discussed with CECILIA Gabriel.
Care plan to be updated, will sign off, call if needed.
--- NOTE | 2024-10-15 09:17 | WOUNDNOTE ---
L GREAT TOE (PLANTAR MEDIAL)
[2024-10-15] MEDS: ProAmatine 5 MG PO ×3 (10:07→18:23)
[2024-10-15] MEDS: ELIQUIS 5 MG PO ×2 (10:08→19:46)
--- NOTE | 2024-10-15 12:00 | PTCARENOTE ---
pt assisted OOB to chair w 2 nurse assist, tolerated well. VSS. Dopamine maintained as ordered.
--- NOTE | 2024-10-15 12:03 | W.PN.CARDCBS ---
Addendum entered and electronically signed by Mike Vences MD 10/15/24 12:47:
I saw and examined the patient.
The COMMODITIES REQUIREMENTS ANALYST or PA's note was reviewed and I agree with the note.
Comment: General: Well developed, well nourished in NAD.
Neck: Supple, no JVD, HJR, carotids +2 B/L, no bruits bilaterally.
Heart: Non displaced PMI, Irreg, no murmurs, No S3, S4, no rubs.
Lungs: scattered rhonchi
Extremities: No clubbing, cyanosis or edema bilaterally.
Neuro: Grossly nonfocal, awake, alert and oriented x3.
Remains hypotensive requiring dopamine with improved heart rate. Check echocardiogram. Attempt to wean dopamine. Lasix remains on hold
Original Note:
Today's Communication / Plan
-
Echo pending
Remains hypotensive despite improved HR
Impression / Plan
-
PCP: Dr. Mark Delgado
Card: Dr. Maier
EP: Dr. Rodriguez, last seen 05/28/14
Impression:
Admitted with hypotension and bradycardia 10/12/24
Long-term [facility] resident
JOYCE
Ventricular bradycardia
Possible sepsis
Hypotension, possibly from sepsis or other
Permanent atrial fibrillation
Chronic Eliquis OAC
COPD
Dementia
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
On chronic oral anticoagulation
Hypocalcemia
Echo 10/15/24: Study pending
Plan:
-Patient sent [facility] to [facility] with hypotension and bradycardia. In the ER, dopamine started and HR improved, but hypotension persisted so it was felt that bradycardia was not the cause of hypotension and so no indication for temporary
pacing.
-Outpatient dose of Lopressor 50 mg daily, which does not sound correct to give Lopressor once daily, was held on admission
-Patient started on antibiotics and blood and urine cultures without growth
-Patient also hydrated with a total of 4 L IVFs this admission
-JOYCE with Cre 2.7 on admission. Cre has improved to 1.2 on 10/15/24
-Dopamine running at 6 mcg/kg/min
-Patient remains hypotensive despite improved heart rate, but no indication for pacing. Midodrine 5 mg TID started 10/14/24
-Echo pending
-Patient with known permanent Afib and plan was for rate control with once daily Lopressor prior to admission. Now that Lopressor is on hold and while on dopamine the patient's HR is in th 90s with BP 82/52.
-Outpatient dose of Eliquis 5 mg BID has been resumed.
-Outpatient dose of Lasix 40 mg PO BID remains on hold. EF unknown.
Progress Note - Storage Architect
Subjective
Date of Service: October 15, 2024
Denies pain
Objective
Labs:
10/15/24 05:12
10/15/24 05:12
Labs
Hgb 12.6 g/dL (13.0-18.0) L 10/15/24 05:12
Hct 39.0 % (39.0-52.0) 10/15/24 05:12
Plt Count 198 10^3/uL (130-400) 10/15/24 05:12
PT 26.7 Sec (11.4-14.6) H 10/12/24 16:20
INR 2.46 10/12/24 16:20
APTT 43.5 Sec (23.4-35.0) H 10/12/24 16:20
Sodium 135 mmol/L (135-145) 10/15/24 05:12
Potassium 4.0 mmol/L (3.5-5.1) 10/15/24 05:12
BUN 32 mg/dl (9-20) H 10/15/24 05:12
Creatinine 1.2 mg/dL (0.7-1.3) 10/15/24 05:12
Glucose 111 mg/dl (70-99) H 10/15/24 05:12
Troponins
10/12/24
17:29
Troponin I < 0.012
Vital Signs and I&O:
Vital Signs
Temp Pulse Resp BP Pulse Ox
98.4 F 91 22 82/52 95
10/15/24 08:36 10/15/24 10:30 10/15/24 10:30 10/15/24 10:30 10/15/24 10:58
Vital Signs
Temp Pulse Resp BP Pulse Ox
98.4 F 91 22 82/52 95
10/15/24 08:36 10/15/24 10:30 10/15/24 10:30 10/15/24 10:30 10/15/24 10:58
Intake & Output
10/13/24 10/14/24 10/15/24 10/16/24
06:59 06:59 06:59 06:59
Intake Total 3742.0 / 3857.5 1270.7 / 1270.7 56.8 / 56.8
Output Total 1790 / 2490 2600 / 2600 300 / 300
Balance 1952.0 / 1367.5 -1329.3 / -1329.3 -243.2 / -243.2
Physical Exam
Physical Exam
GEN: NAD
LUNGS: 2 L NC
CV: Afib on tele
--- NOTE | 2024-10-15 12:53 | W.PN.HOSP.TC ---
Today's Communication/Plan
-
wean Dopamine
continue Midodrine
check Echo
AM cortisol
Assessment / Plan
Assessment / Plan
Assessment:
Hypotension/Bradycardia
- s/p Atropine
- stop Metoprolol
- remains on Dopamine; wean as able
- continue Midodrine to help wean pressor; may need titration
- continue IVF
- cultures negative, stop IV Abx
- follow EP/Cards recs; no role for temporary pacing
- Echo: pending
Hx of permanent A. Fib
- off BB
- continue Eliquis 5mg BID
Leukocytosis likely stress reaction
- cultures negative, stop IV Abx
JOYCE, pre-renal from hypotension
- continue IVF
- follow bladder scans and labs
Hx of Chronic CHF - unknown type
- Echo: pending
- holding Lasix
- monitor volume status with IVF
Hx of COPD/Emphysema
Chronic hypoxic respiratory failure on 2L NC
- monitor O2
- prn nebs
Hyponatremia, acute
Hypocalcemia - repleted via IV
DVT ppx: Eliquis
Code: DNR/DNI
Total Critical Care Time 41 minutes. I was immediately available to the patient and staff. I personally examined, reviewed labs, diagnostic images/reports, interpretations, treatment plans, discussed patient care with other providers and family
or caregivers (if patient is unable to make decisions), entered orders as appropriate and documented the medical record.
Anticipated Discharge: > 48 hours
Subjective/Interval History
-
Date of Service: October 15, 2024
no complaints at present
Objective Data
-
Labs:
Laboratory Results
10/15/24
05:12
WBC 7.5
Hgb 12.6 L
Hct 39.0
Plt Count 198
Sodium 135
Potassium 4.0
Chloride 97 L
Carbon Dioxide 31 H
BUN 32 H
Creatinine 1.2
Glucose 111 H
Calcium 9.0
Vital Signs:
Vital Signs
Temp Pulse Resp BP Pulse Ox
98.4 F 78 16 97/63 96
10/15/24 08:36 10/15/24 12:00 10/15/24 12:00 10/15/24 12:00 10/15/24 11:15
I&O
10/14/24 10/15/24 10/16/24
06:59 06:59 06:59
Intake Total 3742.0 / 3857.5 1270.7 / 1270.7 85.2 / 85.2
Output Total 1790 / 2490 2600 / 2600 300 / 300
Balance 1952.0 / 1367.5 -1329.3 / -1329.3 -214.8 / -214.8
Physical Exam
-
General: No Apparent Distress
HEENT: Normocephalic and Atraumatic
Respiratory: Negative Wheezes
Cardiac: Regular Rhythm and S1/S2
GI: Soft and Nontender
Genito-urinary: No Costovertebral Tender
Psych: Calm and Apparent Dementia
Data Reviewed
-
Critical Care Time (in minutes): 41
Labs: Labs Reviewed by me
--- NOTE | 2024-10-15 13:09 | W.PN.UPDATE ---
Update Note
Progress Note Update
Records received and reviewed from primary rubber compounder mixer, KHOI.
-Admitted to [facility] 09/29/24 for change in mental status. IV diuresed for possible acute HF. Patient switched from warfarin to Eliquis at that time.
-u/s at [facility] 10/03/24 was negative for cirrhosis
-Echo 02/08/2024: [facility] study, EF 61%, RV mildly dilated with low normal systolic function, aortic sclerosis without stenosis, trace aortic regurgitation, mild MR, moderate TR
[2024-10-15] MEDS: ZOSYN IV (13:37)
[2024-10-15] MEDS: NSS 1000 IV (14:18)
--- NOTE | 2024-10-15 15:57 | CARDSERVLU ---
Echocardiogram with Lumason completed after protocol screening completed. Allergies verified.
Patent IV site: Left arm accessory cephalic 20 G PC
IV site flushed with 0.9% NaCl pre and post administration.
Diluted bolus method utilized to enhance visualization of ventricular maria.
Total volume given: ___2_ mL
Patient tolerated all procedures well without complications.
--- NOTE | 2024-10-15 16:47 | CM ---
Chart reviewed. I spoke to Karissa, admissions at [facility], patient is independent of ADLS, lives at home alone, was recently hospitalized at [facility] and then discharged to [facility] SNF. Tried multiple times to contact patient's daughter with no
success. Patient will need a PT/OT evaluation to return to access discharge needs. CM to follow
--- NOTE | 2024-10-15 17:02 | PTCARENOTE ---
pt assisted from chair to bed, echo completed.
[2024-10-15] MEDS: DESENEX/MITRAZOL/ZEASORB 1 APPLIC TOPICAL (19:46)
--- NOTE | 2024-10-15 20:00 | PTCARENOTE ---
Received pt from dayshift. pt resting comfortably in bed, AAOx4, VSS, Afib on monitor. heart sounds audible, radial pulses palpable, DP pulses audible with doppler, trace MARILEE edema. lungs diminished in b/l bases, spo2 96% on 2LNC, CPAP at night. +BS
x4 quadrants, abdomen soft non tender. pt voiding clear yellow urine. b/l legs are dry and scaly wound care on board. PIV and PICC line are maintained. dopamine and NSS gtt infusing. call carrera within reach. will continue to monitor.
[2024-10-16] VITALS (53 sets, daily range): BP systolic 79–142; BP diastolic 46–120; PULSE 55–68; BMI 34.5; BMI 34.3
--- NOTE | 2024-10-16 | PTCARENOTE ---
pt assessment unchanged. Afib on monitor. VSS. call carrera within reach. will continue to monitor.
[2024-10-16] MEDS: NSS 1000 IV ×2 (02:25→14:43)
[2024-10-16 03:50] LABS: Hematocrit 35.2 % (39.0-52.0); Hemoglobin 11.3 g/dL (13.0-18.0); Mean Corp Hgb Conc. 32.1 g/dL (33.0-37.0); Mean Corpuscular Hgb 32.6 pg (27.0-31.0); Mean Corpuscular Volume 101.4 fL (80.0-94.0); Mean Platelet Volume 10.4 fL (7.4-10.4); Platelet Count 194 10^3/uL (130-400); Red Blood Cell Count 3.47 10^6/uL (4.70-6.10); Red Cell Dist. Width 15.9 % (11.5-14.5); White Blood Cell Count 7.3 10^3/uL (4.8-10.8)
[2024-10-16 04:05] LABS: Blood Urea Nitrogen 25 mg/dl (9-20); Calcium 8.8 mg/dl (8.4-10.2); Carbon Dioxide 32 mmol/L (22-30); Chloride 96 mmol/L (98-107); Estimated Creatinine Clearance 86 ml/min; Glucose 159 mg/dl (70-99); Potassium 4.1 mmol/L (3.5-5.1); Sodium 133 mmol/L (135-145); eGFR > 60.00
[2024-10-16 04:34] LABS: Cortisol, Random 7.4 ug/dl
--- NOTE | 2024-10-16 05:00 | PTCARENOTE ---
Pt assessment unchanged. Afib on monitor. VSS. labs drawn and sent. dopamine gtt being weaned. pt cleaned with CHG wipes, new gown and tele leads provided. call carrera within reach. will continue to monitor.
[2024-10-16] MEDS: ELIQUIS 5 MG PO ×2 (08:29→20:30)
[2024-10-16] MEDS: DESENEX/MITRAZOL/ZEASORB 1 APPLIC TOPICAL ×2 (08:30→20:30)
[2024-10-16] MEDS: ProAmatine 5 MG PO ×2 (08:30→11:05)
--- NOTE | 2024-10-16 09:25 | PTCARENOTE ---
Received from date night caregiver RN; AAOx3, drowsy but responds spontaneously to RN and follows commands; Flat affect and forgetful; VSS; Afib on monitor; Irregular pulse; +1 B/L LE edema; B/L DP pulses present with doppler, +1 B/L radial pulses; Shallow
respirations; Lungs diminished at bases; SpO2 97-100% on 2L NC; Normoactive BS, poor appetite; Patient denies nausea at this time; Patient urinating in urinal; B/L LE brown, scaly, and flaky legs SEISMOGRAPH OBSERVER; B/L upper ears red and SEISMOGRAPH OBSERVER, MASD in lower
abdominal folds covered with Desenex, MASD on sacrum covered with sacral foam, old scar on LLE SEISMOGRAPH OBSERVER; #20 LAC present, right PICC line with dopamine and NSS infusing - see nursing flowsheets for further details; See nursing documentation for further
information.
--- NOTE | 2024-10-16 09:47 | W.PN.HOSP.TC ---
Today's Communication/Plan
-
possible DC today if dopamine weaned off and BP stable. Will d/w Cardiology
Assessment / Plan
Assessment / Plan
Assessment:
Hypotension/Bradycardia suspecting from over-diuresis and betablocker therapy
- s/p Atropine
- off Metoprolol
- remains on Dopamine; wean as able
- continue Midodrine to help wean pressor
- continue IVF for now
- cultures negative, stop IV Abx
- AM cortisol normal
- follow EP/Cards recs; no role for temporary pacing
- Echo: with preserved EF and mild MR/TR
Hx of permanent A. Fib
- off Metoprolol
- continue Eliquis 5mg BID
Leukocytosis likely stress reaction
- cultures negative, stop IV Abx
JOYCE, pre-renal from hypotension
- continue IVF for now
- follow bladder scans and labs
Hx of Chronic CHF - unknown type
- Echo: with preserved EF and mild MR/TR
- holding Lasix; likely resume at lower dose or frequency at discharge
- monitor volume status with IVF
Hx of COPD/Emphysema
Chronic hypoxic respiratory failure on 2L NC
- monitor O2
- prn nebs
Hyponatremia, acute
Hypocalcemia - repleted via IV
DVT ppx: Eliquis
Code: DNR/DNI
Total Critical Care Time 41 minutes. I was immediately available to the patient and staff. I personally examined, reviewed labs, diagnostic images/reports, interpretations, treatment plans, discussed patient care with other providers and family
or caregivers (if patient is unable to make decisions), entered orders as appropriate and documented the medical record.
Anticipated Discharge: Within 24 hours
Subjective/Interval History
-
Date of Service: October 16, 2024
resting comfortably, offers no complaints
on dopamine 1 mcg/min
Objective Data
-
Labs:
Laboratory Results
10/16/24
03:21
WBC 7.3
Hgb 11.3 L
Hct 35.2 L
Plt Count 194
Sodium 133 L
Potassium 4.1
Chloride 96 L
Carbon Dioxide 32 H
BUN 25 H
Creatinine 0.8
Glucose 159 H
Calcium 8.8
Vital Signs:
Vital Signs
Temp Pulse Resp BP Pulse Ox
97.3 F 59 14 98/60 97
10/16/24 08:00 10/16/24 09:00 10/16/24 09:00 10/16/24 09:00 10/16/24 09:00
I&O
10/15/24 10/16/24 10/17/24
06:59 06:59 06:59
Intake Total 1270.7 / 1270.7 1810.9 / 1898.0 260.9 / 260.9
Output Total 2600 / 2600 1200 / 1200
Balance -1329.3 / -1329.3 610.9 / 698.0 260.9 / 260.9
Physical Exam
-
General: No Apparent Distress and Appears Chronically Ill
HEENT: Normocephalic and Atraumatic
Cardiac: Regular Rhythm and S1/S2
GI: Soft and Nontender
Genito-urinary: No Costovertebral Tender
Neuro: AO x 3
Psych: Calm
Data Reviewed
-
Critical Care Time (in minutes): 41
Labs: Labs Reviewed by me
--- NOTE | 2024-10-16 10:36 | CM ---
Chart reviewed. Patient was recently admitted to [facility] with CHF and discharged to SNF at [facility]. Prior to that patient was living alone in a 2 STH, 1st floor set up, ramp access into the house and ambulates with a RW. Patient is not interested
in going back to [facility]. He would like to go to SNF some where else. Referrals sent to Jyoti Dang at [place], [facility], [facility], [facility], [facility]. Plan is for the patient to go to SNF. CM to
follow
[2024-10-16] MEDS: MIRALAX 17 GRAMS PO (12:38)
[2024-10-16] MEDS: SENOKOT-S 1 TABLET PO (12:38)
[2024-10-16] MEDS: ProAmatine 10 MG PO ×2 (12:38→18:15)
--- NOTE | 2024-10-16 13:18 | W.PN.CARDCBS ---
Addendum entered and electronically signed by Sg Hernández DO 10/16/24 15:01:
I saw and examined the patient.
The Director Speech's note was reviewed and I agree with the note.
Comment:
Plan:
Wean IV Dopamine and increase Midodrine to 10 mg TID
Echo with preserved EF
Hypotension is not felt to be due to bradycardia.
BC and UC have been negative
Cont IVF hydration, received 4 L this admit.
Cr improved.
Cont to hold lasix. Would consider much lower dosing at d/c potentially lasix 20 mg daily ,given hx of HF in addition to recent hypotension.
Discussed with nursing and with primary service.
Original Note:
Today's Communication / Plan
-
Increase midodrine to 10 mg TID
Dobutamine restarted earlier this morning for ongoing hypotension and now running at 1
52 min face to face and coordination of care
Impression / Plan
-
PCP: Dr. Mark Delgado
Card: Dr. Maier
EP: Dr. Rodriguez, last seen 05/28/14
Impression:
Admitted with hypotension and bradycardia 10/12/24
Recent admission to [facility] 08/2024 and then sent to [facility] for rehab
Second recent admission to [facility] 09/2024 for change in mental status and then sent to [facility] for rehab
JOYCE
Ventricular bradycardia
Possible sepsis
Hypotension, possibly from sepsis or other
Permanent atrial fibrillation
Chronic Eliquis OAC
COPD
Dementia
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
On chronic oral anticoagulation
Hypocalcemia
Echo 02/08/2024: [facility] study, EF 61%, RV mildly dilated with low normal systolic function, aortic sclerosis without stenosis, trace aortic regurgitation, mild MR, moderate TR
Echo 10/15/24: TDS, EF 50-55%, mild conc LVH, mild MR, mild TR
Plan:
-[facility] and bradycardia. In the ER, dopamine started and HR improved, but hypotension persisted so it was felt that bradycardia was not the cause of hypotension and so no indication for temporary
pacing.
-Dopamine running at 1 mcg/kg/min on 10/16/24 and BP 93/56 on 10/16/24
-Will increase midodrine to 10 mg TID starting 10/16/24 AM, orders placed by me
-Outpatient dose of Lopressor 50 mg daily, which does not sound correct to give Lopressor once daily, remains on hold due to hypotension
-Patient started on antibiotics, but blood and urine cultures without growth so antibiotics have been stopped
-Patient hydrated with a total of 4 L IVFs this admission
-JOYCE with Cre 2.7 on admission. Cre has improved to 1.2 on 10/15/24
-Echo reviewed and compared to previous echo at [facility] as above. EF preserved and no evidence of severe valve disease
-Patient with known permanent Afib and plan was for rate control with once daily Lopressor prior to admission. Now that Lopressor is on hold and while on dopamine the patient's HR is in the 70-90s
-Outpatient dose of Eliquis 5 mg BID has been resumed.
-Outpatient dose of Lasix 40 mg PO BID remains on hold. At time of d/c will restart Lasix 20 mg daily with a hold parameter for SBP less than 100.
-Case reviewed with hospitalist attending 10/16/24
Progress Note - Drip Molder
Subjective
Date of Service: October 16, 2024
No pain or palpitations
Objective
Labs:
10/16/24 03:21
10/16/24 03:21
Labs
Hgb 11.3 g/dL (13.0-18.0) L 10/16/24 03:21
Hct 35.2 % (39.0-52.0) L 10/16/24 03:21
Plt Count 194 10^3/uL (130-400) 10/16/24 03:21
PT 26.7 Sec (11.4-14.6) H 10/12/24 16:20
INR 2.46 10/12/24 16:20
APTT 43.5 Sec (23.4-35.0) H 10/12/24 16:20
Sodium 133 mmol/L (135-145) L 10/16/24 03:21
Potassium 4.1 mmol/L (3.5-5.1) 10/16/24 03:21
BUN 25 mg/dl (9-20) H 10/16/24 03:21
Creatinine 0.8 mg/dL (0.7-1.3) 10/16/24 03:21
Glucose 159 mg/dl (70-99) H 10/16/24 03:21
Vital Signs and I&O:
Vital Signs
Temp Pulse Resp BP Pulse Ox
97.4 F 72 18 93/56 95
10/16/24 12:24 10/16/24 12:00 10/16/24 12:00 10/16/24 12:00 10/16/24 12:00
Vital Signs
Temp Pulse Resp BP Pulse Ox
97.4 F 72 18 93/56 95
10/16/24 12:24 10/16/24 12:00 10/16/24 12:00 10/16/24 12:00 10/16/24 12:00
Intake & Output
10/14/24 10/15/24 10/16/24 10/17/24
06:59 06:59 06:59 06:59
Intake Total 3742.0 / 3857.5 1270.7 / 1270.7 1810.9 / 1898.0 872.2 / 872.2
Output Total 1790 / 2490 2600 / 2600 1200 / 1200
Balance 1952.0 / 1367.5 -1329.3 / -1329.3 610.9 / 698.0 872.2 / 872.2
Physical Exam
Physical Exam
GEN: NAD
LUNGS: 2 L NC
CV: Afib on tele
--- NOTE | 2024-10-16 13:25 | PTCARENOTE ---
Patient ambulated to bathroom with RN multiple times with assist x1 and RW; Dopamine infusion maintained for now - unable to wean off at this time; Patient resting OOB in chair; See nursing flowsheets for further details
--- NOTE | 2024-10-16 16:07 | PTCARENOTE ---
Report given to Geraldine RN; Patient belongings taken with patient; Dopamine infusion maintained at 2 mcg/kg/min; VSS
[2024-10-16 17:21] LABS: Glucose - Point of Care 173 mg/dl (70-99)
--- NOTE | 2024-10-16 21:38 | PTCARENOTE ---
Patient received OOB to chair at change of shift. Assisted x1 with RW to commode then bed. NSS infusing via right PICC. Dopamine gtt initially infusing at 1mcg/kg/min, now titrated off. Patient's only complaint is feeling slightly constipated, PRN
meds given by previous shift. Afib on the monitor. Oxygen saturation 95% on 2L NC. Plan of care discussed. Bed alarm armed due to intermittent forgetfulness but patient has been using call carrera appropriately and is alert to self, place, and time.
Call carrera within reach. Care ongoing.
[2024-10-17 03:03] VITALS: BP 105/82
[2024-10-17 03:05] VITALS: BMI 35.2
[2024-10-17 03:50] LABS: Blood Urea Nitrogen 24 mg/dl (9-20); Calcium 8.6 mg/dl (8.4-10.2); Carbon Dioxide 31 mmol/L (22-30); Chloride 102 mmol/L (98-107); Estimated Creatinine Clearance 100 ml/min; Glucose 82 mg/dl (70-99); Potassium 4.3 mmol/L (3.5-5.1); Sodium 135 mmol/L (135-145); eGFR > 60.00
[2024-10-17 07:28] VITALS: BP 107/57
--- NOTE | 2024-10-17 08:23 | W.PN.CARDCBS ---
Addendum entered and electronically signed by Lavelle Meyer MD 10/17/24 13:49:
I saw and examined the patient.
The Drug Safety Coordinator's note was reviewed and I agree with the note.
Comment: Briefly, 74-year-old man with history of COPD on chronic O2, vascular dementia and atrial fibrillation on Eliquis who presented from his nursing facility for evaluation of bradycardia
With concern for symptomatic bradycardia precipitating hypotension he was treated with dopamine over the weekend
Blood pressure responded to fluid resuscitation and the addition of midodrine
He has been weaned off inotropes and pressors and blood pressures in the normal range today
Heart rate has improved off beta-dianne, would not resume metoprolol at this time
Stable for discharge from my perspective on lower dose of Lasix, 20 mg daily
We will sign off, please recall as needed
Original Note:
Today's Communication / Plan
-
Would not restart Lopressor upon d/c
Start Lasix 20 mg daily and hold for SBP less than 100 upon transfer to rehab, instructions placed on d/c instructions
Impression / Plan
-
PCP: Dr. Mark Delgado
Card: Dr. Maier
EP: Dr. Rodriguez, last seen 05/28/14
Impression:
Admitted with hypotension and bradycardia 10/12/24
Recent admission to [facility] 08/2024 and then sent to [facility] for rehab
Second recent admission to [facility] 09/2024 for change in mental status and then sent to [facility] for rehab
JOYCE
Ventricular bradycardia
Possible sepsis
Hypotension, possibly from sepsis or other
Permanent atrial fibrillation
Chronic Eliquis OAC
COPD
Dementia
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
On chronic oral anticoagulation
Hypocalcemia
Echo 02/08/2024: [facility] study, EF 61%, RV mildly dilated with low normal systolic function, aortic sclerosis without stenosis, trace aortic regurgitation, mild MR, moderate TR
Echo 10/15/24: TDS, EF 50-55%, mild conc LVH, mild MR, mild TR
Plan:
-Patient now off of dopamine and BP 107/57 and patient is AAO x3 sitting up in bed.
-New to midodrine this admission and dose was increased to 10 mg TID 10/16/24.
-[facility] and [facility]adycardia. In the ER, dopamine started and HR improved, but hypotension persisted so it was felt that bradycardia was not the cause of hypotension and so no indication for temporary
pacing.
-Outpatient dose of Lopressor 50 mg daily, which does not sound correct to give Lopressor once daily, remains on hold due to hypotension and would not restart upon d/c
-Patient started on antibiotics, but blood and urine cultures without growth so antibiotics have been stopped
-Patient hydrated with a total of 4 L IVFs this admission
-JOYCE with Cre 2.7 on admission. Cre has improved to 0.7 on 10/17/24
-Echo reviewed and compared to previous echo at [facility] as above. EF preserved and no evidence of severe valve disease
-Patient with known permanent Afib and plan was for rate control with once daily Lopressor prior to admission. Now that Lopressor is on hold and while on dopamine the patient's HR is acceptable in the 70-90s
-Outpatient dose of Eliquis 5 mg BID has been resumed.
-Outpatient dose of Lasix 40 mg PO BID remains on hold. At time of d/c will restart Lasix 20 mg daily with a hold parameter for SBP less than 100.
-Case management is working on referrals to alternative rehabs as patient does not want to go back to [facility]. Patient is stable for d/c from a cardiac standpoint on 10/17/24
Progress Note - Oracle Programmer Analyst
Subjective
Date of Service: October 17, 2024
He feels well, no lightheadedness sitting in bed
Objective
Labs:
10/16/24 03:21
10/17/24 03:01
Labs
Hgb 11.3 g/dL (13.0-18.0) L 10/16/24 03:21
Hct 35.2 % (39.0-52.0) L 10/16/24 03:21
Plt Count 194 10^3/uL (130-400) 10/16/24 03:21
PT 26.7 Sec (11.4-14.6) H 10/12/24 16:20
INR 2.46 10/12/24 16:20
APTT 43.5 Sec (23.4-35.0) H 10/12/24 16:20
Sodium 135 mmol/L (135-145) 10/17/24 03:01
Potassium 4.3 mmol/L (3.5-5.1) 10/17/24 03:01
BUN 24 mg/dl (9-20) H 10/17/24 03:01
Creatinine 0.7 mg/dL (0.7-1.3) 10/17/24 03:01
Glucose 82 mg/dl (70-99) 10/17/24 03:01
Vital Signs and I&O:
Vital Signs
Temp Pulse Resp BP Pulse Ox
97.9 F 64 18 107/57 97
10/17/24 07:30 10/17/24 08:00 10/17/24 07:30 10/17/24 07:28 10/17/24 07:30
Vital Signs
Temp Pulse Resp BP Pulse Ox
97.9 F 64 18 107/57 97
10/17/24 07:30 10/17/24 08:00 10/17/24 07:30 10/17/24 07:28 10/17/24 07:30
Intake & Output
10/15/24 10/16/24 10/17/24 10/18/24
06:59 06:59 06:59 06:59
Intake Total 1270.7 / 1270.7 1810.9 / 1898.0 1479.5 / 1479.5
Output Total 2600 / 2600 1200 / 1200 300 / 300
Balance -1329.3 / -1329.3 610.9 / 698.0 1179.5 / 1179.5
Physical Exam
Physical Exam
GEN: NADEdouard THOMASO x3
LUNGS: 2 L NC. No audible wheeze
CV: Afib on tele
[2024-10-17] MEDS: DESENEX/MITRAZOL/ZEASORB 1 APPLIC TOPICAL (08:51)
[2024-10-17] MEDS: ProAmatine 10 MG PO ×3 (08:52→18:32)
[2024-10-17] MEDS: ELIQUIS 5 MG PO ×2 (08:52→19:29)
--- NOTE | 2024-10-17 09:16 | CM ---
Addendum entered by SHANTANU Paredes 10/17/24 15:10:
Pt. has been accepted to a number of facilities.
Met w/ patient at length to review options. He prefers [facility].
Bed avail. today.
Arranged transport for 1999.
I updated patient on arrangements. He is aware/ agreeable.
I placed call to [email or web address] after speaking with patient to notify, unable to leave voicemail message. Will notify pt.
PLAN: [facility] via BLS
RN report- [phone]
Fax- [phone]
Original Note:
CM following for DC planning needs.
Pt. transferred to IVU. Aware that patient is medically stable for DC to SNF. He does not wish to return to his facility of origin, [facility] [place].
Alternative referrals made by prior CM:
[facility], [facility], [facility].
Bed avail @ [facility].
Made add'l referrals to include: [facility], [facility], [facility], [facility], [facility], [facility]. Will await responses.
--- NOTE | 2024-10-17 09:42 | PTCARENOTE ---
Assumed care of pt from night RN. Pt received asleep, but wakens easily to verbal. VSS, CM shows AF60-70's, POX 97/2Lnc. Tubi lehr cutter applied bilaterally to LE. Pt for potential D/C to SNF.
[2024-10-17 11:07] VITALS: BP 98/52
--- NOTE | 2024-10-17 12:56 | W.PN.HOSP.TC ---
Addendum entered and electronically signed by Zen Cummings MD 10/17/24 14:04:
Time of discharge 37 minutes
Original Note:
Today's Communication/Plan
-
monitor vitals
see plan
awaiting placement
off dobutamine
Assessment / Plan
Assessment / Plan
Assessment:
Hypotension/Bradycardia suspecting from over-diuresis and betablocker therapy
- s/p Atropine
- off Metoprolol
- now off Dopamine
- continue Midodrine to help wean pressor
- cultures negative, stop IV Abx
- AM cortisol normal
- follow EP/Cards recs; no role for temporary pacing
- Echo: with preserved EF and mild MR/TR
Hx of permanent A. Fib
- off Metoprolol
- continue Eliquis 5mg BID
Leukocytosis likely stress reaction
- cultures negative, stop IV Abx
JOYCE, pre-renal from hypotension
- continue IVF for now
- follow bladder scans and labs
Hx of Chronic CHF - unknown type
- Echo: with preserved EF and mild MR/TR
- holding Lasix; likely resume at lower dose or frequency at discharge
- monitor volume status with IVF
Hx of COPD/Emphysema
Chronic hypoxic respiratory failure on 2L NC
- monitor O2
- prn nebs
Hyponatremia
monitor
Hypocalcemia -resolved
DVT ppx: Eliquis
Code: DNR/DNI
PT/OT rec SNF
General: No Apparent Distress and Appears Chronically Ill
HEENT: Normocephalic and Atraumatic
Cardiac: Regular Rhythm and S1/S2
GI: Soft and Nontender
Genito-urinary: No Costovertebral Tender
Neuro: AO x 3
Psych: Calm
Anticipated Discharge: Today
Subjective/Interval History
-
Date of Service: October 17, 2024
denies pain
Objective Data
-
Labs:
Laboratory Results
10/17/24
03:01
Sodium 135
Potassium 4.3
Chloride 102
Carbon Dioxide 31 H
BUN 24 H
Creatinine 0.7
Glucose 82
Calcium 8.6
Vital Signs:
Vital Signs
Temp Pulse Resp BP Pulse Ox
97.9 F 64 18 107/57 96
10/17/24 11:10 10/17/24 08:00 10/17/24 11:10 10/17/24 07:28 10/17/24 11:10
I&O
10/16/24 10/17/24 10/18/24
06:59 06:59 06:59
Intake Total 1810.9 / 1898.0 1479.5 / 1479.5
Output Total 1200 / 1200 300 / 300
Balance 610.9 / 698.0 1179.5 / 1179.5
--- NOTE | 2024-10-17 14:04 | W.DCSUMMARY ---
Discharge Summary
Discharge Data
Date of Admission: 10/12/24
Date of Discharge: 10/17/24
-
Pending Results: No
Hospital Course
74-year-old male with past medical history of COPD on chronic O2, vascular dementia, atrial fibrillation, CHF came to the hospital with hypotension and bradycardia. Patient was started on dopamine and was seen by cardiology throughout
hospitalization. Patient beta-dianne was discontinued and he was started on midodrine. Over time patient blood pressure continued to improve and he was able to be weaned off dopamine. Patient was also eval by physical therapy who recommended
SNF. Once patient continued to improve and he was stable off dopamine, he was then discharged to rehab with instructions to follow-up with all his physicians outpatient.
Discharge Plan
-
Patient Disposition: [facility]/SNF
Discharge Diagnosis/Procedures: Hypotension/Bradycardia suspecting from over-diuresis and betablocker therapy
permanent atrial fibrillation
JOYCE
Diet: As tolerated and 2 Gram Sodium
Activity: As tolerated
Driving Restrictions: As prior to admission
Bathing Restrictions: None
Specialty Instructions: Weigh Daily- Call MD for wt gain/loss 3 lbs overnight/5 lbs in 1 week
Activity Restrictions/Additional Instructions:
Moisture lotion to dry skin Le's.
Miconazole powder to abdominal/groin folds twice a day.
Bilateral knee high Tubigrip as tolerated; remove at bedtime; reapply every morning.
Elevate heels off bed with pillow/s.
Follow-up with Dr. Maier outpatient
Referrals:
[facility] [Outside] ([phone])
Mark Delgado DO [Family Provider] - in less than 1 week
Lavelle Meyer MD [Active] -
Additional Discharge Medication Instructions: -STOP taking Lopressor (metoprolol tartrate) due to low heart rate and low blood pressure
-Start taking a lower dose of Lasix (furosemide) 20 mg once a day, but hold for systolic blood pressure less than 100 to avoid low blood pressure
Prescriptions:
New
furosemide [Lasix] 20 mg tablet
20 mg PO DAILY Qty: 30 0RF
Rx Instructions:
Hold for SBP less than 100
miconazole nitrate [Miconazorb AF] 2 % Powder
1 applic topical BID Qty: 0 0RF
polyethylene glycol 3350 17 gram Powder In Packet
17 g PO DAILYPRN PRN (Reason: constipation) Qty: 0 0RF
midodrine 5 mg Tablet
10 mg PO TID@0800,1300,1800 Qty: 0 0RF
Continued
acetaminophen 325 mg Tablet
650 mg PO Q6HPRN PRN (Reason: mild pain/temp>100.4)
ipratropium-albuterol 0.5 mg-3 mg(2.5 mg base)/3 mL Solution For Nebulization
3 ml INHALATION R Q4HPRN PRN (Reason: dyspnea/wheezing)
ondansetron HCl 4 mg Tablet
4 mg PO Q8HPRN PRN (Reason: nausea/vomiting)
loperamide [Imodium A-D] 2 mg Tablet
2 mg PO Q8HPRN PRN (Reason: diarrhea)
thiamine HCl (vitamin B1) 100 mg Tablet
100 mg PO DAILY
magnesium hydroxide [Milk of Magnesia] 400 mg/5 mL Suspension
30 ml PO [id number] PRN (Reason: no bm x3 days)
bisacodyl 10 mg Suppository
10 mg NC DAILYPRN PRN (Reason: if mom ineffective)
Fleet Enema 19-7 gram/118 mL Enema
118 ml NC DAILYPRN PRN (Reason: if suppository ineffective)
folic acid 1 mg Tablet
1 mg PO DAILY
pyridoxine (vitamin B6) 100 mg Tablet
100 mg PO DAILY
melatonin 5 mg Tablet
5 mg PO HSPRN PRN (Reason: insomnia)
cholecalciferol (vitamin D3) [Vitamin D3] 50 mcg (2,000 unit) Tablet
50 mcg PO DAILY
Eliquis 5 mg Tablet
5 mg PO BID
Discontinued
furosemide 40 mg Tablet
40 mg PO BID
metoprolol tartrate 50 mg Tablet
50 mg PO DAILY
Discharge Orders:
Discharge Patient (As Directed); Ordered 10/17/24
Ordered By: Zen Cummings
Care Plan Goals
Care Plan Goals:
Problem: Readiness for enhanced knowledge related to diagnosis and treatment plan
Goal: Understand your diagnosis and treatment plan needs, including medications if applicable.
Instructions: Know your diagnosis, underlying causes and treatment plan options, including medications if applicable. Consult with your health care team to learn about your diagnosis and treatment plan, including medications if applicable.
Discharge Date and Time
Discharge Date/Time: 10/17/24 20:34
Print Language: NEPALI
[2024-10-17 15:12] VITALS: BP 102/70
[2024-10-17 18:43] VITALS: BP 101/48
[2024-10-17] MEDS: SENOKOT-S 1 TABLET PO (19:29)
[2024-10-17] MEDS: DESENEX/MITRAZOL/ZEASORB TOPICAL (19:29)
--- NOTE | 2024-10-17 19:36 | PTCARENOTE ---
Left arm PIV removed prior to patient's scheduled pickup for discharge at 2000
--- NOTE | 2024-10-17 20:22 | PTCARENOTE ---
[facility] for patient pickup to D/C to [facility]. PIV removed as previously noted. panel monitor off. Paperwork given to BLS crew. Report to facility called by mir BROOKS.
== END 2024-10-17 20:34 | DRG 683 ==
LOC: IVU 19:43
PROVIDERS: Internal Medicine; Radiology Diagnostic Radiology; Registered Nurse; ADMITTING PHYSICIAN Internal Medicine; ATTENDING PHYSICIAN Internal Medicine; EMERGENCY PHYSICIAN Emergency Medicine; FAMILY PHYSICIAN Internal Medicine; OTHER PHYSICIAN Internal Medicine Cardiovascular Disease
PROC: 5A09457 Assistance with Respiratory Ventilation, 24-96 Consecutive Hours, Continuous Positive Airway Pressure (ICD-10-PCS; 2024-10-12)
PROC: B5181ZA Fluoroscopy of Superior Vena Cava using Low Osmolar Contrast, Guidance (ICD-10-PCS; 2024-10-14)
PROC: 02HV33Z Insertion of Infusion Device into Superior Vena Cava, Percutaneous Approach (ICD-10-PCS; 2024-10-14)
DX: N17.9 Acute kidney failure, unspecified (principal); F01.518 Vascular dementia, unspecified severity, with other behavioral disturbance; I48.21 Permanent atrial fibrillation; I50.30 Unspecified diastolic (congestive) heart failure; J96.10 Chronic respiratory failure, unspecified whether with hypoxia or hypercapnia; K59.00 Constipation, unspecified; Z99.81 Dependence on supplemental oxygen; Z79.01 Long term (current) use of anticoagulants; G47.00 Insomnia, unspecified; J43.9 Emphysema, unspecified; G47.33 Obstructive sleep apnea (adult) (pediatric); I11.0 Hypertensive heart disease with heart failure; E03.9 Hypothyroidism, unspecified; M06.9 Rheumatoid arthritis, unspecified; K57.90 Diverticulosis of intestine, part unspecified, without perforation or abscess without bleeding; Z66 Do not resuscitate; F17.200 Nicotine dependence, unspecified, uncomplicated; Z79.899 Other long term (current) drug therapy
CPT/HCPCS: 71045; 80048; 80053; 81003; 81015; 82330; 82533; 82962; 83036; 83605; 83735; 83880; 84439; 84443; 84484; 85025; 85027; 85610; 85730; 87040; 87070; 87086; 93005; 93306; 94660; 96365; 96366; 96375; 97163; 97167; 99285; Q9950